=== PATIENT | male | born 1985 | race Caucasian/White ===

== ENCOUNTER 2016-12-25 21:35 | Inpatient (IN) | payer MEDICAID, OTHER ==
[~2016-12-25 21:35] MED LIST: Sodium Chloride 0.9% 1000 ML 1,000 ML IV STA
[2016-12-25 21:47] LABS: VBG BASE EXCESS -4.9 (-2.0-2.0); VBG CARBOXYHEMOGLOBIN 4.3 % T HGB (0.0-6.9); VBG HCO3- 21.1 meq/L (22-28); VBG O2 SATURATION 50.8 (95-100); VBG POTASSIUM 3.1 (3.5-5.1); VBG pH 7.31 (7.32-7.42)
[2016-12-25 21:49] LABS: Mean Cell Volume 67.8 fl (78-100); Platelet Count 189 K/mm3 (150-450); Red Blood Count 5.87 M/mm3 (4.1-5.6); Red Cell Distribution Width 22.3 % (11.5-14.0); White Blood Count 3.6 K/mm3 (4.0-10.5)
--- NOTE | 2016-12-25 21:50 | ERPHSYRPT ---
- History of Present Illness Time Seen by Provider: 12/25/16 21:38 Source: patient, EMS Exam Limitations: no limitations Physician History: This is a 31-year-old white male with history of substance abuse in the past he is brought by paramedics with complaint that the patient had a possible overdose. According to patient and the medics patient apparently took bilateral crusted up and injected around 5:00 he states he took 2 30 milligrams tablets. Patient was apparently complaining of anterior chest pain at the time he has been having vomiting he is noted to have incontinence of his urine and his stool on arrival patient did vomit in the emergency room he was apparently covered with feces and urine on arrival for the medics. Patient currently is alert oriented 3 and cooperative to examination. Past medical history includes substance abuse, patient has had anemia Patient has a history of colonoscopy Patient states he uses marijuana occasionally he denies other substance abuse other than today he states the last time he abuse medications was about 7 years ago. An old chart shows that the patient has been seen in the past for baths salt use. Patient denies suicidal or homicidal ideation Timing/Duration: today (5:00 this evening) Severity: moderate Modifying Factors: Improves With: other (patient states he crushed up Adderal and injected it) Associated Symptoms: vomiting, chest pain, other (incontinence of stool ), No shortness of breath, No heartburn, No diaphoresis, No cough, No chills, No fever , No headaches, No loss of appetite, No malaise, No rash, No syncope, No seizure , No weakness Allergies/Adverse Reactions: No Known Drug Allergies Allergy (Verified 07/18/16 20:58) Home Medications: Unobtainable [Unobtainable] 12/26/16 [History] Hx Tetanus, Diphtheria Vaccination/Date Given: Yes Hx Influenza Vaccination/Date Given: No Hx Pneumococcal Vaccination/Date Given: No - Review of Systems Constitutional: No Fever, No Chills Eyes: No Symptoms Ears, Nose, & Throat: No Symptoms Respiratory: No Cough, No Dyspnea Cardiac: Chest Pain Abdominal/Gastrointestinal: Nausea, Vomiting, Diarrhea, No Abdominal Pain Genitourinary Symptoms: No Dysuria Musculoskeletal: No Back Pain, No Neck Pain Skin: No Rash Neurological: No Dizziness, No Focal Weakness, No Sensory Changes Psychological: Drug Abuse (intensely injected crushed up adderal) Endocrine: No Symptoms All Other Systems: Reviewed and Negative - Past Medical History Pertinent Past Medical History: Yes Neurological History: No Pertinent History ENT History: No Pertinent History Cardiac History: No Pertinent History Respiratory History: No Pertinent History Endocrine Medical History: No Pertinent History Musculoskeletal History: No Pertinent History GI Medical History: Hemorrhoids History: No Pertinent History Psycho-Social History: No Pertinent History Male Reproductive Disorders: No Pertinent History Other Medical History: ANEMIA. - Past Surgical History Past Surgical History: Yes Neuro Surgical History: No Pertinent History Cardiac: No Pertinent History Respiratory: No Pertinent History Gastrointestinal: No Pertinent History Genitourinary: No Pertinent History Musculoskeletal: No Pertinent History Male Surgical History: No Pertinent History Other Surgical History: COLONOSCOPY-2013 - Social History Smoking Status: Current every day smoker How long have you smoked: unknown Exposure to second hand smoke: Yes Drug Use: none Patient Lives Alone: No - Nursing Vital Signs Nursing Vital Signs: Initial Vital Signs Temperature 100.8 F Temperature Source Oral Pulse Rate 112 Respiratory Rate 17 Blood Pressure [Right Arm] 114/60 - Physical Exam General Appearance: moderate distress, other (well-developed white male alert oriele, alert, oriented x 3, vomiting discussed) Eye Exam: PERRL/EOMI, eyes nml inspection Ears, Nose, Throat Exam: normal ENT inspection, TMs normal, pharynx normal, moist mucous membranes Neck Exam: normal inspection, non-tender, supple, full range of motion Respiratory Exam: normal breath sounds, lungs clear, No respiratory distress Cardiovascular Exam: regular rate/rhythm, normal heart sounds, normal peripheral pulses, tachycardia Gastrointestinal/Abdomen Exam: soft, normal bowel sounds, No tenderness, No mass Back Exam: normal inspection, normal range of motion, No CVA tenderness, No vertebral tenderness Extremity Exam: normal inspection, normal range of motion, pelvis stable Neurologic Exam: alert ( this is too complex. He), oriented x 3, cooperative, normal mood/affect, nml cerebellar function, nml station & gait, sensation nml, No motor deficits Skin Exam: normal color, warm, dry, No rash Lymphatic Exam: No adenopathy SpO2 Interpretation: normal - Course Nursing assessment & vital signs reviewed: Yes EKG Interpreted by Me: RATE (125 bpm), Sinus Tach, NORMAL AXIS, Other (EKG: Sinus tachycardia, 125 bpm, no acute ST or T wave changes, normal axis) - Radiology Exams Chest X-ray Interpretation: Interpreted by me, Negative, No Pneumonia, No Pneumothorax Ordered Tests: Active Orders 24 hr Category Date Time Status Bedrest ROUTINE Activity 12/26/16 00:43 Active Accucheck STAT Care 12/25/16 21:35 Completed Admission/Status Order ROUTINE Care 12/26/16 00:43 Active Call Admit Doctor for Orders ON ADMISSION Care 12/26/16 00:43 Completed Code Status Order ROUTINE Care 12/26/16 00:43 Active EKG-ER Only STAT Care 12/25/16 21:35 Completed IV Care Q6H Care 12/26/16 00:43 Active IV Insertion STAT Care 12/25/16 21:35 Completed IV Insertion STAT Care 12/25/16 21:54 Completed Oxygen-ED Only NASAL CANNULA 2 lpm Care 12/25/16 22:14 Completed Telemetry ROUTINE Care 12/26/16 00:43 Active Weight,Daily 0600 Care 12/26/16 00:43 Active cath [Cath for Specimen-Straight] STAT Care 12/25/16 23:02 Completed Clear Liquid Diet 12/26/16 Breakfast Active CHEST 1 VIEW (PORTABLE) Stat Exams 12/25/16 21:37 Taken ACETAMINOPHEN Stat Lab 12/25/16 21:35 Completed ACETAMINOPHEN Urgent Lab 12/26/16 02:00 Ordered AMYLASE Stat Lab 12/25/16 21:35 Completed CBC W DIFF AM.LAB Lab 12/26/16 04:00 Ordered CBC W DIFF Stat Lab 12/25/16 21:35 Completed CK-Creatinine Phosphokinase AM.LAB Lab 12/26/16 04:00 Ordered CK-Creatinine Phosphokinase Stat Lab 12/25/16 21:35 Completed CMP AM.LAB Lab 12/26/16 04:00 Ordered CMP Stat Lab 12/25/16 21:35 Completed Ethyl Alcohol,Urine Stat Lab 12/25/16 23:09 Completed LIPASE Stat Lab 12/25/16 21:35 Completed Manual Differential NC Stat Lab 12/25/16 21:35 Completed SALICYLATE Stat Lab 12/25/16 21:35 Completed TROPONIN Q3H Lab 12/25/16 21:35 Completed TROPONIN Q3H Lab 12/26/16 00:45 Ordered TROPONIN Q3H Lab 12/26/16 03:45 Ordered TROPONIN Q3H Lab 12/26/16 06:45 Ordered TROPONIN Q3H Lab 12/26/16 09:45 Ordered UA W/ MICROSCOPIC Stat Lab 12/25/16 23:09 Completed Urine Triage Profile Stat Lab 12/25/16 23:09 Completed VENOUS BLOOD GAS Urgent Lab 12/25/16 21:35 Completed Oxygen NASAL CANNULA 2 lpm RT 12/26/16 00:43 Active Transfer Order Routine Transfer 12/26/16 00:05 Completed Medication Summary Generic Name Dose Route Start Last Admin Trade Name Halima PRN Reason Stop Dose Admin Potassium Chloride/Sodium Chloride 1,000 mls @ 125 mls/hr 12/26/16 00:43 Sodium Chloride 0.9% W/ 20 Meq Kcl/Liter IV 01/25/17 00:42 .Q8H SASHA Lorazepam 1 mg 12/26/16 00:43 Ativan 2 Mg/1 Ml Vial IV 01/25/17 00:42 PRN PRN CIWA SCORE Ondansetron HCl 4 mg 12/26/16 00:43 Zofran 4 Mg/2 Ml Vial IV 01/25/17 00:42 Q6H PRN PRN NAUSEA/VOMITING Discontinued Medications Generic Name Dose Route Start Last Admin Trade Name Halima PRN Reason Stop Dose Admin Aspirin 324 mg 12/26/16 00:02 12/26/16 00:04 Baby Aspirin 81 Mg Chew PO 12/26/16 00:03 324 mg STAT ONE Administration Sodium Chloride 1,000 mls @ 999 mls/hr 12/25/16 21:35 12/25/16 22:08 Sodium Chloride 0.9% 1000 Ml IV 12/25/16 22:35 999 mls/hr .Q1H1M STA Administration Sodium Chloride 1,000 mls @ 999 mls/hr 12/25/16 21:53 12/25/16 22:08 Sodium Chloride 0.9% 1000 Ml IV 12/25/16 22:53 999 mls/hr .Q1H1M STA Administration Sodium Chloride Confirm 12/25/16 22:05 Sodium Chloride 0.9% 1000 Ml Administered 12/25/16 22:06 Dose 2,000 mls @ ud .ROUTE .STK-MED ONE Sodium Chloride 1,000 mls @ 150 mls/hr 12/25/16 22:45 12/25/16 22:41 Sodium Chloride 0.9% 1000 Ml IV 01/24/17 22:44 150 mls/hr .Q6H40M SASHA Administration Sodium Chloride Confirm 12/25/16 22:36 Sodium Chloride 0.9% 1000 Ml Administered 12/25/16 22:37 Dose 1,000 mls @ ud .ROUTE .STK-MED ONE Ondansetron HCl 4 mg 12/25/16 22:38 12/25/16 22:40 Zofran 4 Mg/2 Ml Vial IV 12/25/16 22:39 4 mg STAT ONE Administration Ondansetron HCl Confirm 12/25/16 22:36 Zofran 4 Mg/2 Ml Vial Administered 12/25/16 22:37 Dose 4 mg .ROUTE .STK-MED ONE Thiamine HCl 100 mg 12/25/16 21:51 12/25/16 22:08 Thiamine 200 Mg/2 Ml IV 12/25/16 21:52 100 mg STAT ONE Administration Thiamine HCl Confirm 12/25/16 22:05 Thiamine 200 Mg/2 Ml Administered 12/25/16 22:06 Dose 200 mg .ROUTE .[facility] ONE Lab/Rad Data: Laboratory Result Diagrams 12/25/16 21:35 12/25/16 21:35 Laboratory Results 12/25/16 12/25/16 12/25/16 Range/Units 23:09 23:09 23:09 WBC (4.0-10.5) K/mm3 RBC (4.1-5.6) M/mm3 Hgb (12.5-18.0) gm/dl Hct (42-50) % MCV (78-100) fl MCH (26-32) pg MCHC (32-36) g/dl RDW (11.5-14.0) % Plt Count (150-450) K/mm3 Segmented Neutrophils (36.-66.) % Band Neutrophils (0.0-2.0) % Lymphocytes (Manual) (24-44) % Differential Comment Dohle Bodies Platelet Estimate (NORMAL) Polychromasia Hypochromasia Poikilocytosis Anisocytosis Microcytosis Ovalocytes VBG pH (7.32-7.42) VBG pCO2 at Pat Temp (42-55) mm/Hg VBG pO2 at Pat Temp (25-40) mm/Hg VBG HCO3 (22-28) meq/L VBG O2 Sat (Rip) (95-100) VBG Base Excess (-2.0-2.0) VBG Hemoglobin VBG Carboxyhemoglobin (0.0-6.9) % T HGB POC Potassium (3.5-5.1) Sodium (136-145) mEq/L Potassium (3.5-5.1) mEq/L Chloride (98-107) mEq/L Carbon Dioxide (21-32) mEq/L Anion Gap (5-15) MEQ/L BUN (9-20) mg/dL Creatinine (0.55-1.30) mg/dl Estimated GFR ML/MIN Glucose (70-110) MG/DL Calcium (8.5-10.1) mg/dL Total Bilirubin (0.2-1.0) mg/dL AST (15-37) U/L ALT (12-78) U/L Alkaline Phosphatase (46-116) U/L Creatine Kinase (39-308) U/L Troponin I (0.000-0.056) ng/ml Serum Total Protein (6.4-8.2) gm/dL Albumin (3.4-5.0) g/dL Amylase (25-115) U/L Lipase (73-393) U/L Ur Collection Type CATH Urine Color YELLOW (YELLOW) Urine Appearance SLIGHTLY CLOUDY (CLEAR) Urine pH 5.5 5.5 (5-6) Ur Specific [place] 1.010 (1.005-1.025) Urine Protein 30 (Negative) Urine Glucose (UA) NEGATIVE (NEGATIVE) mg/dL Urine Ketones NEGATIVE (NEGATIVE) Urine Nitrite NEGATIVE (NEGATIVE) Urine Bilirubin NEGATIVE (NEGATIVE) Urine Urobilinogen 0.2 (0-1) mg/dL Urine WBC (Auto) NEGATIVE (NEGATIVE) Urine RBC (Auto) MODERATE (0-5) Paresh/ul Urine Microscopic RBC 15-25 (0-2) /HPF Urine Microscopic WBC 2-5 (0-5) /HPF Ur Epithelial Cells MODERATE (FEW) /HPF Urine Bacteria MODERATE (NEGATIVE) /HPF Hyaline Casts 0-2 (0-2) /LPF Urine Mucus SLIGHT (NEGATIVE) /HPF Salicylates (2.8-20.0) mg/dl Urine Opiates Level NEG. (NEGATIVE) Ur Methadone NEG. (NEGATIVE) Acetaminophen (10-30) ug/ml Urine Barbiturates NEG. (NEGATIVE) Ur Phencyclidine (PCP) NEG. (NEGATIVE) Urine Amphetamine POS. (NEGATIVE) U Benzodiazepine Level NEG. (NEGATIVE) Urine Cocaine NEG. (NEGATIVE) Urine Marijuana (THC) POS. (NEGATIVE) Urine Ethyl Alcohol < 3 (0.00-20) mg/dl Specimen Received 12/25/16 5161 12/25/16 12/25/16 12/25/16 Range/Units 21:35 21:35 21:35 WBC (4.0-10.5) K/mm3 RBC (4.1-5.6) M/mm3 Hgb (12.5-18.0) gm/dl Hct (42-50) % MCV (78-100) fl MCH (26-32) pg MCHC (32-36) g/dl RDW (11.5-14.0) % Plt Count (150-450) K/mm3 Segmented Neutrophils (36.-66.) % Band Neutrophils (0.0-2.0) % Lymphocytes (Manual) (24-44) % Differential Comment Dohle Bodies Platelet Estimate (NORMAL) Polychromasia Hypochromasia Poikilocytosis Anisocytosis Microcytosis Ovalocytes VBG pH (7.32-7.42) VBG pCO2 at Pat Temp (42-55) mm/Hg VBG pO2 at Pat Temp (25-40) mm/Hg VBG HCO3 (22-28) meq/L VBG O2 Sat (Rip) (95-100) VBG Base Excess (-2.0-2.0) VBG Hemoglobin VBG Carboxyhemoglobin (0.0-6.9) % T HGB POC Potassium (3.5-5.1) Sodium (136-145) mEq/L Potassium (3.5-5.1) mEq/L Chloride (98-107) mEq/L Carbon Dioxide (21-32) mEq/L Anion Gap (5-15) MEQ/L BUN (9-20) mg/dL Creatinine (0.55-1.30) mg/dl Estimated GFR ML/MIN Glucose (70-110) MG/DL Calcium (8.5-10.1) mg/dL Total Bilirubin (0.2-1.0) mg/dL AST (15-37) U/L ALT (12-78) U/L Alkaline Phosphatase (46-116) U/L Creatine Kinase 296 (39-308) U/L Troponin I < 0.017 (0.000-0.056) ng/ml Serum Total Protein (6.4-8.2) gm/dL Albumin (3.4-5.0) g/dL Amylase 32 (25-115) U/L Lipase 109 (73-393) U/L Ur Collection Type Urine Color (YELLOW) Urine Appearance (CLEAR) Urine pH (5-6) Ur Specific [place] (1.005-1.025) Urine Protein (Negative) Urine Glucose (UA) (NEGATIVE) mg/dL Urine Ketones (NEGATIVE) Urine Nitrite (NEGATIVE) Urine Bilirubin (NEGATIVE) Urine Urobilinogen (0-1) mg/dL Urine WBC (Auto) (NEGATIVE) Urine RBC (Auto) (0-5) Paresh/ul Urine Microscopic RBC (0-2) /HPF Urine Microscopic WBC (0-5) /HPF Ur Epithelial Cells (FEW) /HPF Urine Bacteria (NEGATIVE) /HPF Hyaline Casts (0-2) /LPF Urine Mucus (NEGATIVE) /HPF Salicylates (2.8-20.0) mg/dl Urine Opiates Level (NEGATIVE) Ur Methadone (NEGATIVE) Acetaminophen (10-30) ug/ml Urine Barbiturates (NEGATIVE) Ur Phencyclidine (PCP) (NEGATIVE) Urine Amphetamine (NEGATIVE) U Benzodiazepine Level (NEGATIVE) Urine Cocaine (NEGATIVE) Urine Marijuana (THC) (NEGATIVE) Urine Ethyl Alcohol (0.00-20) mg/dl Specimen Received 12/25/16 12/25/16 12/25/16 Range/Units 21:35 21:35 21:35 WBC 3.6 L (4.0-10.5) K/mm3 RBC 5.87 H (4.1-5.6) M/mm3 Hgb 11.6 L (12.5-18.0) gm/dl Hct 39.8 L (42-50) % MCV 67.8 L (78-100) fl MCH 19.7 L (26-32) pg MCHC 29.1 L (32-36) g/dl RDW 22.3 H (11.5-14.0) % Plt Count 189 (150-450) K/mm3 Segmented Neutrophils 80 H (36.-66.) % Band Neutrophils 11 H (0.0-2.0) % Lymphocytes (Manual) 9 L (24-44) % Differential Comment ABNORMAL Dohle Bodies 1+ Platelet Estimate NORMAL (NORMAL) Polychromasia 1+ Hypochromasia 2+ Poikilocytosis 1+ Anisocytosis 1+ Microcytosis 2+ Ovalocytes 1+ VBG pH 7.31 L (7.32-7.42) VBG pCO2 at Pat Temp 42 (42-55) mm/Hg VBG pO2 at Pat Temp 27 (25-40) mm/Hg VBG HCO3 21.1 L (22-28) meq/L VBG O2 Sat (Rip) 50.8 L (95-100) VBG Base Excess -4.9 L (-2.0-2.0) VBG Hemoglobin 12.0 VBG Carboxyhemoglobin 4.3 (0.0-6.9) % T HGB POC Potassium 3.1 L (3.5-5.1) Sodium 141 (136-145) mEq/L Potassium 3.1 L (3.5-5.1) mEq/L Chloride 103 (98-107) mEq/L Carbon Dioxide 20.3 L (21-32) mEq/L Anion Gap 20.3 H (5-15) MEQ/L BUN 21 H (9-20) mg/dL Creatinine 2.05 H (0.55-1.30) mg/dl Estimated GFR 41 ML/MIN Glucose 124 H (70-110) MG/DL Calcium 9.4 (8.5-10.1) mg/dL Total Bilirubin 0.7 (0.2-1.0) mg/dL AST 99 H (15-37) U/L ALT 53 (12-78) U/L Alkaline Phosphatase 102 (46-116) U/L Creatine Kinase (39-308) U/L Troponin I (0.000-0.056) ng/ml Serum Total Protein 7.6 (6.4-8.2) gm/dL Albumin 4.2 (3.4-5.0) g/dL Amylase (25-115) U/L Lipase (73-393) U/L Ur Collection Type Urine Color (YELLOW) Urine Appearance (CLEAR) Urine pH (5-6) Ur Specific [place] (1.005-1.025) Urine Protein (Negative) Urine Glucose (UA) (NEGATIVE) mg/dL Urine Ketones (NEGATIVE) Urine Nitrite (NEGATIVE) Urine Bilirubin (NEGATIVE) Urine Urobilinogen (0-1) mg/dL Urine WBC (Auto) (NEGATIVE) Urine RBC (Auto) (0-5) Paresh/ul Urine Microscopic RBC (0-2) /HPF Urine Microscopic WBC (0-5) /HPF Ur Epithelial Cells (FEW) /HPF Urine Bacteria (NEGATIVE) /HPF Hyaline Casts (0-2) /LPF Urine Mucus (NEGATIVE) /HPF Salicylates < 2.8 L (2.8-20.0) mg/dl Urine Opiates Level (NEGATIVE) Ur Methadone (NEGATIVE) Acetaminophen < 2.0 L (10-30) ug/ml Urine Barbiturates (NEGATIVE) Ur Phencyclidine (PCP) (NEGATIVE) Urine Amphetamine (NEGATIVE) U Benzodiazepine Level (NEGATIVE) Urine Cocaine (NEGATIVE) Urine Marijuana (THC) (NEGATIVE) Urine Ethyl Alcohol (0.00-20) mg/dl Specimen Received - Progress Progress: improved Progress Note: 12/25/16 21:49 This is a 31-year-old white male who is brought by medics with complaint that he crushed up lateral tablets and injecting them at about 5:00. Patient was noted to have vomiting, 4 episodes of diarrhea incontinence of stool. On arrival he is vomiting he is alert however oriented 3. Patient is noted to be tachycardic on the monitor with heart rate at this time at approximately 126. Orders have been placed I've asked the nurses to obtain an EKG and contact poison control patient is being given IV fluids , 12/25/16 23:47 Patient feeling much better after IV fluids and Zofran. Patient's heart rate currently 111 beats per minute patient does not appear to be in acute distress blood pressure has improved. Patient's chemistry is remarkable for a of potassium of 3.1 sodium 141 chloride 103 bicarbonate 20.3 BUN 21 creatinine 2.05 glucose 124. Troponin is within normal limits amylase normal lipase normal salicylate less than 2.8 acetaminophen less than 2. Urine drug screen is a positive for amphetamines and the blood alcohol is less than 3. I initially discussed the case with Dr. Aguila apparently Dr. Aguila is no longer this patient's family physician Will discuss case with Dr. hodgson who is news production assistant for service call. 12/26/16 00:02 Case is discussed with Dr. hodgson who is on service call. Patient is feeling much better. Will go ahead and give patient aspirin 324 mg orally. Will go ahead and place patient on ICU obtain serial troponins obtain acetaminophen level IV hours after last draw. Will start normal saline with 20 mEq of potassium chloride per liter to run at 1 25 mL per hour. Will write for Ativan as needed for agitation. CBC CMP in the morning - Departure Time of Disposition: 00:00 Departure Disposition: Observation Clinical Impression: Intentional overdose of drug by injectable substance, Substance abuse Vomiting Qualifiers: Vomiting type: unspecified Vomiting Intractability: non-intractable Nausea presence: without nausea Qualified Code(s): R11.11 - Vomiting without nausea Diarrhea Qualifiers: Diarrhea type: unspecified type Qualified Code(s): R19.7 - Diarrhea, unspecified Condition: Fair Critical Care Time: No
[2016-12-25] MEDS ORDERED: THIAMINE 200 MG/2 ML IV ONE (21:51)
[2016-12-25] MEDS ORDERED: Sodium Chloride 0.9% 1000 ML 1,000 ML IV STA (21:53)
[2016-12-25 21:57] LABS: Mean Corpuscular Hemoglobin 19.7 pg (26-32)
[2016-12-25] MEDS ORDERED: THIAMINE 200 MG/2 ML ONE (22:05)
[2016-12-25] MEDS ORDERED: Sodium Chloride 0.9% 1000 ML 2,000 ML ONE (22:05)
[2016-12-25 22:15] LABS: ALBUMIN 4.2 g/dL (3.4-5.0); ALKALINE PHOSPHATASE 102 U/L (46-116); ANION GAP 20.3 MEQ/L (5-15); BILIRUBIN,TOTAL 0.7 mg/dL (0.2-1.0); BLOOD UREA NITROGEN 21 mg/dL (9-20); CHLORIDE 103 mEq/L (98-107); Carbon Dioxide 20.3 mEq/L (21-32); Glucose 124 MG/DL (70-110); Potassium 3.1 mEq/L (3.5-5.1); SGOT/AST 99 U/L (15-37); SGPT/ALT 53 U/L (12-78); SODIUM 141 mEq/L (136-145); Total Protein 7.6 gm/dL (6.4-8.2)
[2016-12-25 22:16] LABS: ACETAMINOPHEN < 2.0 ug/ml (10-30)
[2016-12-25 22:24] LABS: LIPASE 109 U/L (73-393)
[2016-12-25 22:25] LABS: BAND 11 % (0.0-2.0); Platelet Estimate NORMAL (NORMAL); Total Cells Counted 100
[2016-12-25 22:26] LABS: Hypochromia 2+; Microcytosis 2+
[2016-12-25 22:28] LABS: ANISOCYTOSIS 1+; Ovalocytes 1+; Poikilocytosis 1+; Polychromasia 1+
[2016-12-25 22:29] LABS: Dohle Bodies 1+
[2016-12-25] MEDS ORDERED: Sodium Chloride 0.9% 1000 ML 1,000 ML ONE (22:36)
[2016-12-25] MEDS ORDERED: Zofran 4 MG/2 ML VIAL ONE (22:36)
[2016-12-25] MEDS ORDERED: Zofran 4 MG/2 ML VIAL IV ONE (22:38)
[2016-12-25] MEDS ORDERED: Sodium Chloride 0.9% 1000 ML 1,000 ML IV SCH (22:45)
[2016-12-26] MEDS ORDERED: BABY ASPIRIN 81 MG CHEW PO ONE (00:02)
[2016-12-26 00:08] LABS: Bacteria MODERATE /HPF (NEGATIVE); COMPLETE URINE MICROSCOPIC? YES; Collection Type CATH; Epithelial Cells MODERATE /HPF (FEW); Hyaline Casts 0-2 /LPF (0-2); Mucus SLIGHT /HPF (NEGATIVE); Ph 5.5 (5-6)
[2016-12-26] MEDS ORDERED: Sodium Chloride 0.9% W/ 20 mEq KCl/LITER 1,000 ML IV SCH (00:43)
[2016-12-26] MEDS ORDERED: Zofran 4 MG/2 ML VIAL IV PRN (00:43)
[2016-12-26] MEDS ORDERED: Ativan 2 MG/1 ML VIAL IV PRN (00:43)
[2016-12-26 04:39] LABS: Mean Cell Volume 67.8 fl (78-100); Platelet Count 117 K/mm3 (150-450); Red Blood Count 4.79 M/mm3 (4.1-5.6); Red Cell Distribution Width 21.4 % (11.5-14.0); White Blood Count 15.9 K/mm3 (4.0-10.5)
[2016-12-26 04:48] LABS: Mean Corpuscular Hemoglobin 20.2 pg (26-32)
[2016-12-26] MEDS ORDERED: Sodium Chloride 0.9% 1000 ML 1,000 ML ONE ×2 (05:22→12:36)
[2016-12-26 05:31] LABS: ALBUMIN 3.1 g/dL (3.4-5.0); ANION GAP 16.4 MEQ/L (5-15); BILIRUBIN,TOTAL 0.9 mg/dL (0.2-1.0); Carbon Dioxide 20.8 mEq/L (21-32); Potassium 3.7 mEq/L (3.5-5.1); Total Protein 5.8 gm/dL (6.4-8.2)
--- NOTE | 2016-12-26 08:55 | HP ---
HISTORY OF PRESENT ILLNESS: This is a 31 y/o man who reports that he was trying to get high off of Adderall yesterday and he crushed some and injected it. The Emergency Room doctor reported that EMS was called. The patient reports that after he did this he felt poorly and so he called his family. The patient does report that he was home with his 2 y/o son, but then called his family to come watch him. The EMS found him, according to the Emergency Room doctor, in the bathtub covered in poop. The patient reports all he then remembers is waking up in the bathroom covered in poop and he was brought her for further evaluation and treatment. The patient reports that he has had trouble with drug abuse in the past and reports that he had trouble 7 or 8 years ago and quit using and moved away. He does have a recent hospitalization here at our hospital July 2016 with an overdose. The patient reports that he recently got from his and they are in a custody bee. He reports he has had counseling at [facility] before and desires help with his addiction. REVIEW OF SYSTEMS: He has had vomiting and diarrhea before admission, but not overnight. He denies pain anywhere. He had chest pain when he came in. he states he feels like he needs to urinate, but is having trouble doing so and was not having trouble urinating before coming in to the Emergency Department. He reports that he used a catheter and he thinks this has caused the problem. Otherwise, Review of Systems is negative. PAST MEDICAL HISTORY: Illicit drug use. PAST SURGICAL HISTORY: Hemorrhoidectomy. SOCIAL HISTORY: He reports he smokes 1/2 pack per day of cigarettes. He uses marijuana and he uses prescription drugs that are not his. He denies methamphetamine use, denies heroin use, and denies cocaine use. FAMILY HISTORY: His mother is living and doesn't have any health problems. His father is living and thinks he has diabetes. The patient doesn't have a local primary care doctor. CURRENT MEDICATIONS: No prescribed medications. ALLERGIES: NKDA. PHYSICAL EXAMINATION: VITAL SIGNS: Temperature current 98.4; temperature maximum 100.8; heart rate 93-131, currently 100; respiratory rate 16-24, currently 16; O2 saturation 94-98% on 2 liters nasal cannula; BP 84-123/45-60, currently 96/45. Weight is 78 Kg. GENERAL: The patient is lying in bed in no acute distress. He arouses easily. He is A&O X 3 and knows who The client advocate is. CVS: He has a regular rate and rhythm. No murmurs, gallops, or rubs are appreciated. CHEST: He has a few wheezes at the bases bilaterally. No crackles. Equal breath sounds. No retractions. ABDOMEN: Soft, nontender, nondistended with normal bowel sounds. EXTREMITIES: No clubbing, cyanosis, or edema. SKIN: He has tattoos. No rash and the skin is warm, dry, and intact. LABORATORY DATA: His WBC on admission was 3.6, now 15.9. On admission, he had 80% neutrophils, 11% bands, 9% lymphocytes. Potassium on admission was 3.1, repeat was 3.7. AST this morning 120, ALT 80, albumin 3.1. Creatinine was 2.05 on admission, now 1.71. Urine tox was positive for amphetamines and THC. Acetaminophen level was less than 2 and repeat 4 hours later was less than 2. Salicylates less than 2.8. Ethyl alcohol less than 3. He had a chest x-ray, but there is no formal report from the radiologist. His EKG from the Emergency Room revealed sinus tachycardia with no ST or T wave changes. ASSESSMENT AND PLAN: 1. PRESCRIPTION DRUG OVERDOSE: The patient has been given a large amount of IV fluids. His heart rate has come down. He is alert and talkative now. The patient reports he does want help with his addiction. Will ask for [facility] to consult with him. 2. ILLICIT DRUG USE: The patient will be counseled that he shouldn't be using illicit drugs and that he shouldn't be using prescription medicines that aren't his. 3. ACUTE RENAL FAILURE: Will continue with the fluids and recheck his creatinine again in the morning. 4. LEUKOCYTOSIS: Will check a lactic acid level this AM and recheck a PA and lateral chest x-ray.
--- NOTE | 2016-12-26 09:01 | XRAY ---
Indication: Overdose. Comparison: July 19, 2016. Portable chest again demonstrates normal heart, lungs, and bony thorax with incidental calcified granulomas.
--- NOTE | 2016-12-26 09:03 | XRAY ---
Indication: Leukocytosis. Comparison: One day earlier. PA/lateral chest again demonstrates normal heart, lungs, and bony thorax with incidental calcified granulomas.
[2016-12-26 09:19] LABS: Lactic Acid 3.4 (0.4-2.0)
[2016-12-26] MEDS ORDERED: PHARMACY DOSING REQUEST MC ONE ×2 (09:56→09:57)
[2016-12-26] MEDS: Dextrose 5% -0.45 NaCl 1000 ML 1,000 ML IV SCH ×2 (10:01→20:39)
[2016-12-26] MEDS: TYLENOL 325 MG PO PRN ×2 (10:02→18:03)
[2016-12-26] MEDS: Merrem 1 GM 1 G in Sodium Chloride 100ML MINI-BAG PLUS 100 ML IV SCH ×3 (10:29→20:01)
[2016-12-26] MEDS: VANCOCIN 1 GM VIAL*** 0.75 GM in Sodium Chloride 0.9% 250 ML 250 ML IV SCH ×2 (11:19→22:09)
[2016-12-26] MEDS ORDERED: Sodium Chloride 0.9% 1000 ML 1,000 ML IV STA (12:38)
[2016-12-26 13:06] LABS: BAND 14 % (0.0-2.0); Total Cells Counted 100
[2016-12-26 13:07] LABS: ANISOCYTOSIS 1+; Platelet Estimate NORMAL (NORMAL); Poikilocytosis 1+
--- NOTE | 2016-12-26 14:31 | CONS ---
CONSULT DATE: 12/26/16 REASON FOR CONSULTATION: Critical care evaluation. HISTORY OF PRESENT ILLNESS: Mr. Black is a 31 y/o male with history of substance abuse who apparently used [address] Adderall IV with contaminated needle. The patient presented with altered mental status with headache, dizziness, and diarrhea to the Emergency Room at [facility]. He had subsequently been admitted to Intensive Care Unit. He was noted to be hypotensive with improving BP with IV hydration. He was started with broad spectrum IV antibiotics. I received a call earlier from Dr. Hu requesting critical care consultation. At the time of my evaluation, patient is awake. He is able to give history. He appears comfortable. He reports headache, but no other complaints. His BP currently is 94/50 after receiving fluid bolus. He reports that he has been doing drugs for a long time. PAST MEDICAL HISTORY: Patient denies any common medical problems other than illicit drug use. PAST SURGICAL HISTORY: Hemorrhoid surgery. PERSONAL AND SOCIAL HISTORY: He smokes 1/2 pack. Uses marijuana occasionally. He is not on any prescription medications. 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 ALLERGIES: NOTED. CURRENT MEDICATIONS: Reviewed. PHYSICAL EXAMINATION: This is a middle aged male who appears comfortable still with a little bit of a dazed look, but not in any discomfort. Vital signs are noted. HEENT: Normocephalic. Oral exam is unremarkable. NECK: Supple. CVS: 1st and 2nd heart sounds normal, regular rhythm. RESPIRATORY: Shows diminished breath sounds. ABDOMEN: Soft. No edema is noted. Lactic acid is 2.3. WBC 15.9, Hgb 9.7, Hct 32, platelets 117. Troponin is negative. Sodium 141, potassium 3.7, chloride 107, bicarb 20, glucose 112, BUN 20, creatinine 1.7. The UA was noted. Chest x-ray was unremarkable. ASSESSMENT: 1. THIS IS A 31 YEAR OLD MALE ADMITTED WITH ILLICIT SUBSTANCE ABUSE VIA IV ROUTE WITH POSSIBLY CONTAMINATED NEEDLE. IS NOTED TO HAVE HYPOTENSION POSSIBLY FROM EARLY SEPSIS. 2. RENAL INSUFFICIENCY. ELEVATED CREATININE. POSSIBLY FROM DRUG USE. 3. SUBSTANCE ABUSE. RECOMMENDATIONS: 1. Agree with current broad spectrum IV antibiotics. 2. Continue aggressive hydration monitoring urinary output. 3. Repeat labs in AM. 4. Continue Tylenol PRN. 5. Advised patient regarding hazards of substance abuse, in particularly via IV route. 6. Patient has been advised to get human immunodeficiency virus and hepatitis testing now, at 6 weeks, and at 3 months. 7. Deep vein thrombosis and gastrointestinal prophylaxis. Will continue to follow. Thank you for allowing me to participate in the care of this patient.
[2016-12-26] MEDS: Sodium Chloride 0.9% 1000 ML 1,000 ML IV PRN ×3 (14:52→23:05)
[2016-12-27] MEDS: Merrem 1 GM 1 G in Sodium Chloride 100ML MINI-BAG PLUS 100 ML IV SCH ×3 (03:20→18:44)
[2016-12-27] MEDS: Sodium Chloride 0.9% 1000 ML 1,000 ML IV PRN ×2 (04:41→06:19)
[2016-12-27] MEDS: Dextrose 5% -0.45 NaCl 1000 ML 1,000 ML IV SCH ×2 (05:34→08:00)
[2016-12-27 05:38] LABS: Mean Cell Volume 69.3 fl (78-100); Mean Corpuscular Hemoglobin 19.8 pg (26-32); Platelet Count 90 K/mm3 (150-450); Red Blood Count 4.14 M/mm3 (4.1-5.6); Red Cell Distribution Width 21.8 % (11.5-14.0); White Blood Count 23.4 K/mm3 (4.0-10.5)
[2016-12-27 06:00] LABS: ALBUMIN 2.5 g/dL (3.4-5.0); ALKALINE PHOSPHATASE 71 U/L (46-116); ANION GAP 13.8 MEQ/L (5-15); BILIRUBIN,TOTAL 0.3 mg/dL (0.2-1.0); BLOOD UREA NITROGEN 12 mg/dL (9-20); CHLORIDE 113 mEq/L (98-107); Carbon Dioxide 21.1 mEq/L (21-32); Glucose 88 MG/DL (70-110); Potassium 3.3 mEq/L (3.5-5.1); SGOT/AST 45 U/L (15-37); SGPT/ALT 50 U/L (12-78); SODIUM 145 mEq/L (136-145)
[2016-12-27 06:36] LABS: BAND 9 % (0.0-2.0); Total Cells Counted 100
[2016-12-27 06:37] LABS: ANISOCYTOSIS 1+; Poikilocytosis 1+
[2016-12-27 06:38] LABS: Platelet Estimate NORMAL (NORMAL)
--- NOTE | 2016-12-27 08:43 | PCM.NOTE ---
Date and Time: 12/27/16837 Subjective Assessment: He reports his fingers feel puffy. He has been eating well. He states it feels like there is a heaviness on his chest that hasn't gone away since he was in the ER. He reports his headache and muscle aches are better. He is urinating well and states he feels like he needs to use the bathroom. He has a cough. He denies any rashes. Nursing reports that the CPS worker came to the hospital yesterday and there is a note on the front of the chart that CPS is to be notified when he is discharged. - Review of Systems Constitutional: Fatigue Eyes: No Symptoms Ears, Nose, & Throat: No Symptoms Respiratory: No Symptoms Cardiac: Chest Pain Abdominal/Gastrointestinal: Abdominal Pain, No Nausea, No Vomiting, No Diarrhea , No Constipation Genitourinary Symptoms: No Symptoms Musculoskeletal: No Symptoms Skin: No Symptoms Objective Exam General Appearance: no apparent distress, alert, other (grandmother at bedside) Neurologic Exam: alert, cooperative, normal mood/affect Skin Exam: normal color, warm, dry, No rash Respiratory Exam: normal breath sounds, lungs clear, No crackles/rales, No rhonchi, No wheezing Cardiovascular Exam: regular rate/rhythm, normal heart sounds, No murmur, No friction rub, No gallop Gastrointestinal/Abdomen Exam: soft, normal bowel sounds, tenderness, other ( mild right upper quadrant tenderness), No distention, No mass, No guarding Extremity Exam: normal inspection, other (no c/c, + swelling in hands bilat, no edema of lower extremities.) OBJECTIVE DATA Vital Signs: Vital Signs - 24 hr Temp Pulse Resp BP Pulse Ox 12/27/16 07:47 98.6 F 82 16 118/66 98 12/27/16 07:00 62 16 107/66 98 12/27/16 06:39 65 16 98 12/27/16 06:00 69 15 94/54 98 12/27/16 05:00 97.4 F 69 15 96/60 12/27/16 04:00 97.4 F 79 15 90/54 12/27/16 03:00 97.7 F 71 15 86/56 91 L 12/27/16 02:00 97.7 F 72 15 85/58 98 12/27/16 01:00 97.6 F 77 15 93/54 98 12/27/16 00:01 81 12/27/16 00:00 91/46 12/26/16 23:00 97.7 F 78 19 73/39 97 12/26/16 22:00 98.2 F 75 15 95/52 97 12/26/16 21:00 98.1 F 87 20 79/44 98 12/26/16 20:00 98.7 F 91 H 20 89/44 99 12/26/16 18:57 98.8 F 97 H 20 106/59 98 12/26/16 18:55 98 12/26/16 18:00 100 H 22 106/59 100 12/26/16 17:07 99 H 21 106/57 100 12/26/16 16:00 98.9 F 107 H 26 H 94/59 98 12/26/16 15:00 99.1 F 92 H 18 102/59 99 12/26/16 12:49 95 H 16 92/45 98 12/26/16 11:56 93 H 12/26/16 11:51 100.5 F 93 H 27 H 88/47 98 12/26/16 09:48 99.6 F 12/26/16 09:01 97.5 F 85 18 97/51 98 12/26/16 08:52 85 Pain Assessment - Last Documented Pain Intensity 7 Pain Scale Used 0-10 Pain Scale Intake and Output: Intake & Output 12/25/16 12/26/16 12/27/16 12/28/16 06:59 06:59 06:59 06:59 Intake Total 905 9301 Output Total 3125 Balance 905 6144 Weight 78.608 kg 83.007 kg Lab Results: Lab Results-Last 24 Hours 12/26/16 12/26/16 12/26/16 Range/Units 09:15 09:53 11:45 WBC (4.0-10.5) K/mm3 RBC (4.1-5.6) M/mm3 Hgb (12.5-18.0) gm/dl Hct (42-50) % MCV (78-100) fl MCH (26-32) pg MCHC (32-36) g/dl RDW (11.5-14.0) % Plt Count (150-450) K/mm3 Segmented Neutrophils (36.-66.) % Band Neutrophils (0.0-2.0) % Lymphocytes (Manual) (24-44) % Monocytes (Manual) (0.0-12.0) % Differential Comment Platelet Estimate (NORMAL) Poikilocytosis Anisocytosis Sodium (136-145) mEq/L Potassium (3.5-5.1) mEq/L Chloride (98-107) mEq/L Carbon Dioxide (21-32) mEq/L Anion Gap (5-15) MEQ/L BUN (9-20) mg/dL Creatinine (0.55-1.30) mg/dl Estimated GFR ML/MIN Glucose (70-110) MG/DL Lactic Acid 3.4 H 2.3 H (0.4-2.0) Calcium (8.5-10.1) mg/dL Total Bilirubin (0.2-1.0) mg/dL AST (15-37) U/L ALT (12-78) U/L Alkaline Phosphatase (46-116) U/L Troponin I < 0.017 (0.000-0.056) ng/ml Serum Total Protein (6.4-8.2) gm/dL Albumin (3.4-5.0) g/dL 12/27/16 12/27/16 Range/Units 05:23 05:23 WBC 23.4 H (4.0-10.5) K/mm3 RBC 4.14 (4.1-5.6) M/mm3 Hgb 8.2 L (12.5-18.0) gm/dl Hct 28.7 L (42-50) % MCV 69.3 L (78-100) fl MCH 19.8 L (26-32) pg MCHC 28.6 L (32-36) g/dl RDW 21.8 H (11.5-14.0) % Plt Count 90 L (150-450) K/mm3 Segmented Neutrophils 68 H (36.-66.) % Band Neutrophils 9 H (0.0-2.0) % Lymphocytes (Manual) 19 L (24-44) % Monocytes (Manual) 4 (0.0-12.0) % Differential Comment ABNORMAL Platelet Estimate NORMAL (NORMAL) Poikilocytosis 1+ Anisocytosis 1+ Sodium 145 (136-145) mEq/L Potassium 3.3 L (3.5-5.1) mEq/L Chloride 113 H (98-107) mEq/L Carbon Dioxide 21.1 (21-32) mEq/L Anion Gap 13.8 (5-15) MEQ/L BUN 12 (9-20) mg/dL Creatinine 0.96 (0.55-1.30) mg/dl Estimated GFR > 60 ML/MIN Glucose 88 (70-110) MG/DL Lactic Acid (0.4-2.0) Calcium 7.2 L (8.5-10.1) mg/dL Total Bilirubin 0.3 (0.2-1.0) mg/dL AST 45 H (15-37) U/L ALT 50 (12-78) U/L Alkaline Phosphatase 71 (46-116) U/L Troponin I (0.000-0.056) ng/ml Serum Total Protein 5.0 L (6.4-8.2) gm/dL Albumin 2.5 L (3.4-5.0) g/dL Radiology Exams: Radiology Procedures Category Date Time Status CHEST 2 VIEWS (PA AND LAT) Routine Exams 12/26/16 08:31 Completed ECHO W/2D AND DOPPLER [US] Routine Exams 12/26/16 09:58 Taken GALLBLADDER [US] Urgent Exams 12/27/16 08:31 Ordered Multi-Disciplinary Progress Notes: Multi-Disciplinary Progress Notes 12/26/16 10:48 Pharmacy Note by SENIOR CONSUMER INSIGHTS CONSULTANT,PHARM Pharmacy to dose vancomycin and meropenem. The patient's Scr was 1.71 and his estimated CrCl was 60-70 ml/min on 12/26/16. Give patient vancomycin 750 mg Q12H and check vancomycin trough level on 12/27/16 at 21:30. Monitor patient's renal function and vancomycin levels and dose accordingly. -Luis Singleton, PharmD Candidate Initialized on 12/26/16 10:48 - END OF NOTE Assessment/Plan (1) Sepsis Current Visit: Yes Status: Acute Assessment & Plan: Blood cultures in lab, urine culture in lab, Will check gallbladder US today. Continue with fluid support. He received approximately 8 liters of fluid in and had approximately 3 liters of fluid out. I appreciate Dr. Clark consulting for critical care and he continues to follow as well. He has leukocytosis with a left shift. He is on meropenem Day 2 and vancomycin Day 2. He has an Echocardigram ordered. (2) Intentional overdose of drug by injectable substance Current Visit: Yes Status: Acute Assessment & Plan: Continue with supportive care. High risk profile ordered which includes testing for HIV and hepatitis B and C. He has been counseled on the risks of drug use especially IV drug use. Code(s): T50.902A - POISONING BY UNSP DRUG/MEDS/BIOL SUBST, SELF-HARM, INIT (3) Substance abuse Current Visit: Yes Status: Acute Code(s): F19.10 - OTHER PSYCHOACTIVE SUBSTANCE ABUSE, UNCOMPLICATED (4) Anemia Current Visit: Yes Status: Acute Assessment & Plan: Will check iron levels today. Code(s): D64.9 - ANEMIA, UNSPECIFIED (5) Thrombocytopenia Current Visit: Yes Status: Acute Assessment & Plan: Most likely secondary to sepsis. Will hold off on lovenox for DVT prophylaxis. He has not received any lovenox. (6) Chest pain Current Visit: Yes Status: Acute Assessment & Plan: He ruled out for acute OH yesterday. Will check another troponin today. Code(s): R07.9 - CHEST PAIN, UNSPECIFIED (7) Acute renal failure Current Visit: Yes Status: Acute Assessment & Plan: Improved with IV fluids. (8) Hypokalemia Current Visit: Yes Status: Acute Assessment & Plan: Will replace potassium today. Code(s): E87.6 - HYPOKALEMIA
[2016-12-27] MEDS ORDERED: Klor Con 10 MEQ PO ONE (08:56)
[2016-12-27] MEDS: VANCOCIN 1 GM VIAL*** 0.75 GM in Sodium Chloride 0.9% 250 ML 250 ML IV SCH ×2 (09:33→17:08)
[2016-12-27 14:10] LABS: CHLAMYDIA URINE NEGATIVE; GC URINE NEGATIVE
--- NOTE | 2016-12-27 15:09 | XRAY ---
Indication: Right upper quadrant pain. Sepsis. Two-dimensional right upper quadrant abdominal sonogram performed. Comparison: None Gallbladder normally distended with wall thickening measuring 3.3 mm and tiny pericholecystic fluid. No gallstone. Common bile duct measures 2.3 mm. No intrahepatic biliary distention. Remaining visualized portions of the liver, pancreas, and right kidney appear sonographically normal. Right kidney measures 11.7 cm in length. No ascites. Impression: Gallbladder wall thickening with pericholecystic fluid but no gallstones. Rule out acalculous cholecystitis.
[2016-12-27] MEDS ORDERED: TROUGH DRUG LEVELS IJ ONE (21:30)
[2016-12-27] MEDS: TYLENOL 325 MG PO PRN (22:48)
[2016-12-28] MEDS: Merrem 1 GM 1 G in Sodium Chloride 100ML MINI-BAG PLUS 100 ML IV SCH ×3 (01:04→18:41)
[2016-12-28] MEDS: VANCOCIN 1 GM VIAL*** 0.75 GM in Sodium Chloride 0.9% 250 ML 250 ML IV SCH ×2 (02:00→18:44)
[2016-12-28 05:42] LABS: BASOPHIL % 0.2 % (0.0-0.4); Eosinophil % 1.6 % (0.00-5.0); Granulocytes % 82.5 % (36.0-66.0); Lymphocytes % 11.5 % (24.0-44.0); Mean Cell Volume 69.5 fl (78-100); Mean Corpuscular Hemoglobin 20.1 pg (26-32); Monocytes % 4.2 % (0.0-12.0); Platelet Count 110 K/mm3 (150-450); Red Blood Count 4.52 M/mm3 (4.1-5.6); Red Cell Distribution Width 22.5 % (11.5-14.0); White Blood Count 16.1 K/mm3 (4.0-10.5)
[2016-12-28 06:02] LABS: ALBUMIN 2.6 g/dL (3.4-5.0); ALKALINE PHOSPHATASE 84 U/L (46-116); ANION GAP 12.4 MEQ/L (5-15); BILIRUBIN,TOTAL 0.3 mg/dL (0.2-1.0); BLOOD UREA NITROGEN 10 mg/dL (9-20); CHLORIDE 113 mEq/L (98-107); Carbon Dioxide 21.5 mEq/L (21-32); Glucose 79 MG/DL (70-110); Potassium 3.9 mEq/L (3.5-5.1); SGOT/AST 38 U/L (15-37); SGPT/ALT 43 U/L (12-78); SODIUM 143 mEq/L (136-145); Total Protein 5.6 gm/dL (6.4-8.2)
[2016-12-28 06:29] LABS: Hepatitis B Sur Ag Screen Non Reactive (Non Reactive)
--- NOTE | 2016-12-28 08:24 | PCM.NOTE ---
Date and Time: 12/28/16818 Subjective Assessment: He reports he has a headache and feels achy and with palpation has right upper quadrant tenderness. He reports he was able to eat ok. He reports he still wants to get help for his addiction. - Review of Systems Constitutional: No Symptoms Eyes: No Symptoms Ears, Nose, & Throat: No Symptoms Respiratory: No Symptoms Cardiac: No Symptoms Abdominal/Gastrointestinal: Abdominal Pain, No Diarrhea, No Constipation, No Appetite Changes Genitourinary Symptoms: No Symptoms Musculoskeletal: Myalgias Skin: No Symptoms Neurological: Headache Objective Exam General Appearance: no apparent distress, alert Neurologic Exam: alert, cooperative, normal mood/affect Skin Exam: normal color, warm, dry, No rash Respiratory Exam: normal breath sounds, lungs clear, No crackles/rales, No rhonchi, No wheezing Cardiovascular Exam: regular rate/rhythm, normal heart sounds, No murmur, No friction rub, No gallop Gastrointestinal/Abdomen Exam: soft, tenderness, other (right upper quadrant tenderness), No distention, No guarding Extremity Exam: other (no c/c/e) OBJECTIVE DATA Vital Signs: Vital Signs - 24 hr Temp Pulse Resp BP Pulse Ox 12/28/16 04:00 56 L 16 117/71 97 12/28/16 00:01 71 12/28/16 00:00 98.2 F 71 18 103/72 12/27/16 20:00 97.6 F 70 22 113/72 97 12/27/16 16:00 97.4 F 81 18 112/68 97 12/27/16 11:50 98 F 79 18 108/63 97 12/27/16 11:00 78 16 116/70 98 12/27/16 10:00 75 16 114/67 97 12/27/16 09:00 76 12 115/76 100 Pain Assessment - Last Documented Pain Intensity 7 Pain Scale Used 0-10 Pain Scale Intake and Output: Intake & Output 12/26/16 12/27/16 12/28/16 12/29/16 06:59 06:59 06:59 06:59 Intake Total 905 9301 2808 Output Total 3125 2550 Balance 905 6161 258 Weight 78.608 kg 83.007 kg 85.275 kg Lab Results: Lab Results-Last 24 Hours 12/27/16 12/27/16 12/27/16 Range/Units 05:00 05:23 09:53 WBC (4.0-10.5) K/mm3 RBC (4.1-5.6) M/mm3 Hgb (12.5-18.0) gm/dl Hct (42-50) % MCV (78-100) fl MCH (26-32) pg MCHC (32-36) g/dl RDW (11.5-14.0) % Plt Count (150-450) K/mm3 Gran % (36.0-66.0) % Lymphocytes % (24.0-44.0) % Monocytes % (0.0-12.0) % Eosinophils % (0.00-5.0) % Basophils % (0.0-0.4) % Basophils # (0-0.4) Sodium (136-145) mEq/L Potassium (3.5-5.1) mEq/L Chloride (98-107) mEq/L Carbon Dioxide (21-32) mEq/L Anion Gap (5-15) MEQ/L BUN (9-20) mg/dL Creatinine (0.55-1.30) mg/dl Estimated GFR ML/MIN Glucose (70-110) MG/DL Calcium (8.5-10.1) mg/dL Iron 6 L (50-175) ug/dl TIBC 269 (250-450) ug/dl Iron Saturation 2.2 L (20-39) % Total Bilirubin (0.2-1.0) mg/dL AST (15-37) U/L ALT (12-78) U/L Alkaline Phosphatase (46-116) U/L Troponin I (0.000-0.056) ng/ml Serum Total Protein (6.4-8.2) gm/dL Albumin (3.4-5.0) g/dL Ur Chlamydia DNA Probe NEGATIVE Urine GC DNA Probe NEGATIVE Hep Bs Antigen Non Reactive (Non Reactive) Hep Bs Antibody, Quant Pending Hepatitis C Antibody Weak Reactive H (Non Reactive) HIV Ag/Ab Combo Qual Pending HIV Ag/Ab Interpret Pending HIV 1&2 Antibody Pending Slides for Path Review 12/27/16 12/28/16 12/28/16 Range/Units 09:53 05:38 05:38 WBC 16.1 H (4.0-10.5) K/mm3 RBC 4.52 (4.1-5.6) M/mm3 Hgb 9.1 L (12.5-18.0) gm/dl Hct 31.4 L (42-50) % MCV 69.5 L (78-100) fl MCH 20.1 L (26-32) pg MCHC 29.0 L (32-36) g/dl RDW 22.5 H (11.5-14.0) % Plt Count 110 L (150-450) K/mm3 Gran % 82.5 H (36.0-66.0) % Lymphocytes % 11.5 L (24.0-44.0) % Monocytes % 4.2 (0.0-12.0) % Eosinophils % 1.6 (0.00-5.0) % Basophils % 0.2 (0.0-0.4) % Basophils # 0.03 (0-0.4) Sodium 143 (136-145) mEq/L Potassium 3.9 (3.5-5.1) mEq/L Chloride 113 H (98-107) mEq/L Carbon Dioxide 21.5 (21-32) mEq/L Anion Gap 12.4 (5-15) MEQ/L BUN 10 (9-20) mg/dL Creatinine 0.91 (0.55-1.30) mg/dl Estimated GFR > 60 ML/MIN Glucose 79 (70-110) MG/DL Calcium 8.1 L (8.5-10.1) mg/dL Iron (50-175) ug/dl TIBC (250-450) ug/dl Iron Saturation (20-39) % Total Bilirubin 0.3 (0.2-1.0) mg/dL AST 38 H (15-37) U/L ALT 43 (12-78) U/L Alkaline Phosphatase 84 (46-116) U/L Troponin I 0.019 (0.000-0.056) ng/ml Serum Total Protein 5.6 L (6.4-8.2) gm/dL Albumin 2.6 L (3.4-5.0) g/dL Ur Chlamydia DNA Probe Urine GC DNA Probe Hep Bs Antigen (Non Reactive) Hep Bs Antibody, Quant Hepatitis C Antibody (Non Reactive) HIV Ag/Ab Combo Qual HIV Ag/Ab Interpret HIV 1&2 Antibody Slides for Path Review Radiology Exams: Radiology Procedures Category Date Time Status CHEST 2 VIEWS (PA AND LAT) Routine Exams 12/26/16 08:31 Completed ECHO W/2D AND DOPPLER [US] Routine Exams 12/26/16 09:58 Taken GALLBLADDER [US] Urgent Exams 12/27/16 08:31 Completed Multi-Disciplinary Progress Notes: Multi-Disciplinary Progress Notes 12/27/16 14:31 Case Management Note by BRENTON JURADO SPOKE TO PT ABOUT DISCHARGE NEEDS AND PT DENIES ANY NEEDS AT THIS TIME. WILL CONTINUE TO MONITOR DISCHARGE NEEDS. Initialized on 12/27/16 14:31 - END OF NOTE 12/27/16 10:19 Pharmacy Note by HOME ADMINISTRATOR,PHARM The patient's Scr has improved to 0.96. We will change vancomycin dose to 750mg Q8H and get vancomycin trough level on 12/28/16 at 09:30. Also continue to monitor patient's Scr and adjust vancomycin dose accordingly. -Luis Singleton, PreetD Candidate Initialized on 12/27/16 10:19 - END OF NOTE Assessment/Plan (1) Sepsis Current Visit: Yes Status: Acute Assessment & Plan: Blood cultures, urine cultures no growth to date. Continue current IV antibiotics. His gallbladder US was concerning for acalculous cholecystitis. Will ask for a general surgery consult. His blood pressure is stable now and he is not requiring large boluses of fluid to maintain his blood pressure. (2) Intentional overdose of drug by injectable substance Current Visit: Yes Status: Acute Code(s): T50.902A - POISONING BY UNSP DRUG/ MEDS/BIOL SUBST, SELF-HARM, INIT (3) Substance abuse Current Visit: Yes Status: Acute Assessment & Plan: Plan for [facility] consult. Code(s): F19.10 - OTHER PSYCHOACTIVE SUBSTANCE ABUSE, UNCOMPLICATED (4) Anemia Current Visit: Yes Status: Acute Qualifiers: Iron deficiency anemia type: unspecified iron deficiency Assessment & Plan: Will start iron supplementation. Code(s): D64.9 - ANEMIA, UNSPECIFIED (5) Thrombocytopenia Current Visit: Yes Status: Acute Assessment & Plan: Stable. Most likely due to drug use and/or sepsis. (6) Chest pain Current Visit: Yes Status: Resolved Assessment & Plan: Resolved, repeat troponin was neg yesterday. Code(s): R07.9 - CHEST PAIN, UNSPECIFIED (7) Acute renal failure Current Visit: Yes Status: Resolved (8) Hypokalemia Current Visit: Yes Status: Resolved Code(s): E87.6 - HYPOKALEMIA (9) Hepatitis C antibody positive in blood Current Visit: Yes Status: Acute Assessment & Plan: Check Hep C RNA today. Code(s): R76.8 - OTHER SPECIFIED ABNORMAL IMMUNOLOGICAL FINDINGS IN SERUM
[2016-12-28] MEDS: FEOSOL 325 MG PO SCH ×3 (09:14→23:17)
[2016-12-28] MEDS: THERAGRAN MULTIVITAMIN PO SCH (09:14)
[2016-12-28] MEDS: TYLENOL 325 MG PO PRN (09:14)
[2016-12-28] MEDS ORDERED: TROUGH DRUG LEVELS IJ ONE (09:30)
[2016-12-28 10:53] LABS: Hepatitis B Surface Ab.Quant 8.56 mIU/mL (0.00-8.49)
--- NOTE | 2016-12-28 14:07 | XRAY ---
Indication: Right upper quadrant pain. Vomiting and diarrhea. Abnormal gallbladder ultrasound. Comparison: None Patient received 5.9 mCi technetium 99 Choletec. Immediate anterior planar imaging was performed for 75 minutes. Normal hepatic activity on the first image. Normal biliary and gallbladder activity within 10 minutes. Normal biliary to bowel activity within 30 minutes. Patient then ingested 8 ounces of Ensure Plus. Ejection fraction calculated 22%, low. Impression: HIDA scan portion of the exam is normal. Low ejection fraction 22%. Rule out chronic cholecystitis.
[2016-12-28] MEDS: VANCOCIN 1 GM VIAL*** 1 GM in Sodium Chloride 0.9% 250 ML 250 ML IV SCH ×2 (16:23→23:19)
[2016-12-28] MEDS ORDERED: VANCOCIN 1 GM VIAL*** 1 GM in Sodium Chloride 0.9% 250 ML 250 ML IV SCH (18:00)
[2016-12-28] MEDS ORDERED: Lactated Ringers 1,000 ML IV ONE ×2 (20:41→20:52)
[2016-12-28] MEDS ORDERED: Sensorcaine 0.25% 10 ML ONE (20:52)
[2016-12-28] MEDS ORDERED: Quelicin Fliptop 200 MG/10 ML IV ONE (21:00)
[2016-12-28] MEDS ORDERED: TORAdol 30 mg Injection IV ONE (21:00)
[2016-12-28] MEDS ORDERED: DIPRIVAN 200 MG/20 ML IV ONE (21:00)
[2016-12-28] MEDS ORDERED: Lactated Ringers 1,000 ML IV SCH (21:00)
[2016-12-28] MEDS ORDERED: SUBLIMAZE 100 MCG/2 ML IV ONE (21:00)
[2016-12-28] MEDS ORDERED: Decadron 4 MG INJ IV ONE (21:00)
[2016-12-28] MEDS ORDERED: DILAUDID 2 MG INJECTION IV ONE (21:00)
[2016-12-28] MEDS ORDERED: Zemuron 100 MG/10 ML IV ONE (21:00)
[2016-12-28] MEDS ORDERED: Zofran 4 MG/2 ML VIAL IV ONE (21:00)
[2016-12-28] MEDS: Dextrose 5% -0.45 NaCl 1000 ML 1,000 ML IV SCH (21:16)
[2016-12-29] MEDS: D5W/0.45NS W/ 20mEq KCl 1000 ML 1,000 ML IV SCH ×2 (02:05→17:39)
[2016-12-29] MEDS: Merrem 1 GM 1 G in Sodium Chloride 100ML MINI-BAG PLUS 100 ML IV SCH ×3 (02:05→17:39)
[2016-12-29] MEDS ORDERED: NORCO 5/325 MG ONE ×2 (02:10→06:21)
[2016-12-29] MEDS: NORCO 5/325 MG PO PRN ×4 (02:13→22:04)
[2016-12-29 05:55] LABS: Mean Corpuscular Hemoglobin 19.7 pg (26-32); Platelet Count 116 K/mm3 (150-450); Red Blood Count 4.97 M/mm3 (4.1-5.6); Red Cell Distribution Width 22.5 % (11.5-14.0); White Blood Count 9.5 K/mm3 (4.0-10.5)
[2016-12-29] MEDS: VANCOCIN 1 GM VIAL*** 1 GM in Sodium Chloride 0.9% 250 ML 250 ML IV SCH (06:23)
[2016-12-29 07:10] LABS: ALBUMIN 2.9 g/dL (3.4-5.0); ALKALINE PHOSPHATASE 92 U/L (46-116); ANION GAP 12.2 MEQ/L (5-15); BILIRUBIN,TOTAL 0.2 mg/dL (0.2-1.0); BLOOD UREA NITROGEN 8 mg/dL (9-20); CHLORIDE 109 mEq/L (98-107); Carbon Dioxide 26.1 mEq/L (21-32); Glucose 176 MG/DL (70-110); Potassium 4.9 mEq/L (3.5-5.1); SGOT/AST 34 U/L (15-37); SGPT/ALT 40 U/L (12-78); SODIUM 142 mEq/L (136-145); Total Protein 6.5 gm/dL (6.4-8.2)
[2016-12-29] MEDS: FEOSOL 325 MG PO SCH ×3 (10:12→22:04)
[2016-12-29] MEDS: THERAGRAN MULTIVITAMIN PO SCH (10:12)
--- NOTE | 2016-12-29 12:26 | PCM.NOTE ---
Date and Time: 12/29/16 1221 Subjective Assessment: He reports he has had some stomach cramping today but his nurses documented he was able to eat last night. He states he does not feel like he is passing gas. He is wanting to go to a facility for treatment of his addiction. He still feels like his fingers and feet are a little swollen. - Review of Systems Constitutional: No Symptoms Eyes: No Symptoms Ears, Nose, & Throat: No Symptoms Respiratory: No Symptoms Cardiac: No Symptoms Abdominal/Gastrointestinal: Abdominal Pain, No Nausea, No Vomiting, No Diarrhea , No Constipation Genitourinary Symptoms: No Symptoms Musculoskeletal: No Symptoms Skin: No Symptoms Neurological: No Symptoms Objective Exam General Appearance: no apparent distress, alert Neurologic Exam: alert, cooperative, normal mood/affect Skin Exam: normal color, warm, dry, No rash Respiratory Exam: normal breath sounds, lungs clear, No crackles/rales, No rhonchi, No wheezing Cardiovascular Exam: regular rate/rhythm, normal heart sounds, No murmur, No friction rub, No gallop Gastrointestinal/Abdomen Exam: soft, normal bowel sounds, tenderness, other ( bandaids in place over surgical sites.), No distention, No mass, No guarding Extremity Exam: normal inspection, other (no c/c/e) OBJECTIVE DATA Vital Signs: Vital Signs - 24 hr Temp Pulse Resp BP Pulse Ox 12/29/16 09:00 98.4 F 62 134/81 95 12/29/16 07:29 95 12/29/16 02:20 98.4 F 62 16 134/81 94 L 12/29/16 01:20 98.5 F 81 16 133/75 96 12/29/16 00:20 98.6 F 84 16 134/77 96 12/28/16 23:50 98.0 F 74 16 133/71 99 12/28/16 23:20 98.0 F 65 14 141/91 95 12/28/16 23:05 97.9 F 61 16 141/94 93 L 12/28/16 20:00 98.3 F 68 16 137/89 97 12/28/16 16:00 98.5 F 67 20 132/91 99 Oxygen-Last 24 hours O2 Percentage 3 Liters = 32% O2 Percentage 3 Liters = 32% O2 Percentage 3 Liters = 32% O2 Percentage 3 Liters = 32% Pain Assessment - Last Documented Pain Intensity 4 Pain Scale Used 0-10 Pain Scale Intake and Output: Intake & Output 12/27/16 12/28/16 12/29/16 12/30/16 06:59 06:59 06:59 06:59 Intake Total 9301 2808 1668 Output Total 3127 3071 4100 Balance 6138 258 -2432 Weight 83.007 kg 85.275 kg 85.275 kg Lab Results: Lab Results-Last 24 Hours 12/29/16 12/29/16 Range/Units 05:36 05:36 WBC 9.5 (4.0-10.5) K/mm3 RBC 4.97 (4.1-5.6) M/mm3 Hgb 9.8 L (12.5-18.0) gm/dl Hct 34.3 L (42-50) % MCV 69.0 L (78-100) fl MCH 19.7 L (26-32) pg MCHC 28.6 L (32-36) g/dl RDW 22.5 H (11.5-14.0) % Plt Count 116 L (150-450) K/mm3 Sodium 142 (136-145) mEq/L Potassium 4.9 (3.5-5.1) mEq/L Chloride 109 H (98-107) mEq/L Carbon Dioxide 26.1 (21-32) mEq/L Anion Gap 12.2 (5-15) MEQ/L BUN 8 L (9-20) mg/dL Creatinine 0.94 (0.55-1.30) mg/dl Estimated GFR > 60 ML/MIN Glucose 176 H (70-110) MG/DL Calcium 8.8 (8.5-10.1) mg/dL Total Bilirubin 0.2 (0.2-1.0) mg/dL AST 34 (15-37) U/L ALT 40 (12-78) U/L Alkaline Phosphatase 92 (46-116) U/L Serum Total Protein 6.5 (6.4-8.2) gm/dL Albumin 2.9 L (3.4-5.0) g/dL Radiology Exams: Radiology Procedures Category Date Time Status HIDA-GALL BLADDER [NUCMED] Urgent Exams 12/28/16 12:30 Completed Multi-Disciplinary Progress Notes: Multi-Disciplinary Progress Notes 12/28/16 23:24 Respiratory Note by Mayank Akhtar CALL FROM PSYCHOLOGIST ENGINEERING THAT PT WAS BACK FROM SURGERY AND O2 SATS WERE LOW. SHE STATED SHE PLACED PT ON 3LPM NC. I PLACED AN ORDER AND WILL ASSESS PT. Initialized on 12/28/16 23:24 - END OF NOTE 12/28/16 15:21 Case Management Note by Karen Drummond PT WAS MOVED TO [facility] TODAY FROM ICU. INDEPENDENT WITH ALL AD'S HAS OWN APARTMENT. HAD A [facility] CONSULT TODAY WAITING ON RECOMMENDATIONS FROM THEM. ALSO HAS A HIDA SCAN TODAY . POSSIBLE SURGERY TODAY OR TOMORROW. WILL CONT TO MONITOR ALL NEEDS. Initialized on 12/28/16 15:21 - END OF NOTE Assessment/Plan (1) Sepsis Current Visit: Yes Status: Acute Assessment & Plan: His WBC count is normal now and his blood cultures have been no growth to date. Will stop vancomycin today and continue with meropenem. He had his gallbladder taken out yesterday as this may have been contributing to the sepsis if it was infected as was my concern with his right upper quadrant abdominal pain. (2) Intentional overdose of drug by injectable substance Current Visit: Yes Status: Acute Code(s): T50.902A - POISONING BY UNSP DRUG/ MEDS/BIOL SUBST, SELF-HARM, INIT (3) Substance abuse Current Visit: Yes Status: Acute Assessment & Plan: [facility] consult completed and they are working on placement for him as an inpatient. Code(s): F19.10 - OTHER PSYCHOACTIVE SUBSTANCE ABUSE, UNCOMPLICATED (4) Anemia Current Visit: Yes Status: Acute Qualifiers: Iron deficiency anemia type: unspecified iron deficiency Assessment & Plan: Stable. Continue iron supplementation. Code(s): D64.9 - ANEMIA, UNSPECIFIED (5) Thrombocytopenia Current Visit: Yes Status: Acute Assessment & Plan: Stable. (6) Hepatitis C antibody positive in blood Current Visit: Yes Status: Acute Assessment & Plan: Hep C RNA pending. Discussed with patient that there is treatment available if his Hep C RNA does come back as positive but if he continued to use IV drugs, he could be reexposed. Code(s): R76.8 - OTHER SPECIFIED ABNORMAL IMMUNOLOGICAL FINDINGS IN SERUM (7) Abdominal pain Current Visit: Yes Status: Acute Assessment & Plan: s/p cholecystectomy, improving. Code(s): R10.9 - UNSPECIFIED ABDOMINAL PAIN
--- NOTE | 2016-12-29 15:14 | CONS ---
CONSULT DATE: 12/28/16 HISTORY OF PRESENT ILLNESS: 31 y/o gentleman apparently got admitted a couple of days ago trying to get high off of crushing and injecting Adderall. Had some nausea and right upper quadrant pain since he had been in the hospital here. We did an US that showed some wall thickening. He did not have any stones, but he had a HIDA that showed ejection fraction that was low consistent with what they felt was some dyskinesia, 22%. PAST MEDICAL HISTORY: He has had some illicit drug use and abuse. HOME MEDICATIONS: No prescribed medications on a regular basis. ALLERGIES: NKDA. FAMILY HISTORY: Heart disease and chronic obstructive pulmonary disease. He denied any family history of Crohn's disease or celiac disease. SOCIAL HISTORY: 1/2 pack per day smoker and using marijuana and prescription drugs that are not his. PAST SURGICAL HISTORY: Had a hemorrhoidectomy. He denied any prior abdominal surgeries. REVIEW OF SYSTEMS: 12 systems reviewed per admission assessment and H&P. No current chest pain or palpitations. He was positive for amphetamines and THC on his drug screen when he was admitted. PHYSICAL EXAMINATION: GENERAL: Slightly uncomfortable, otherwise no acute distress. HEENT: Sclerae nonicteric. NECK: No JVD. CHEST: Equal excursion. Nonlabored breathing. CVS: Regular rhythm. ABDOMEN: Soft. Some tenderness in right upper quadrant. No peritoneal signs. EXTREMITIES: No significant edema. NEURO: Alert, moving extremities grossly symmetrically. No gross motor deficits noted. WBC was 16. Hgb 9.1 at one point. He had liver function tests. Supposedly, his bilirubin was okay. AST and ALT 45 and 50 and Alk. phos. 71 when it was done yesterday. IMPRESSION: 1. 31 YEAR OLD GENTLEMAN WITH HISTORY OF SOME DRUG ABUSE, BUT ALSO WITH SOME RIGHT UPPER QUADRANT PAIN AND THICKENING GALLBLADDER WALL ON ULTRASOUND. HIDA SCAN SHOWING ABNORMAL EJECTION FRACTION. NOT SURE WHETHER HE HAS GOT SOME ACUTE EXACERBATION OF CHRONIC CHOLECYSTITIS WELL DYSKINESIA. FEEL HE WOULD BENEFIT FROM CHOLECYSTECTOMY. Risks and benefits explained in detail, but not limited to, bleeding; infection; risk of trocar injury or hernia; small risk of bowel, bladder, or blood vessel injury; small risk of bile leak, bile duct injury, or retained stone or sludge possibly requiring further procedures either open or endoscopic retrograde cholangiopancreatography; general risk of anesthesia, deep vein thrombosis, pulmonary embolism, or pneumonia; perioperative risks of aches, pains, bloating, constipation and/or loose stools possibly chronic in nature; possibility that this procedure may not improve his symptoms and he may need further work-up and/or testing, endoscopy or other studies or procedures. He understands and agrees to the plan. Will proceed with laparoscopic cholecystectomy, possible open when OR time available. Thank you for the consult.
--- NOTE | 2016-12-29 15:22 | OP ---
SURGERY DATE: 12/28/16 SURGERY TIME: PREOPERATIVE DIAGNOSIS: 1. SYMPTOMATIC BILIARY DYSKINESIA, ACALCULUS CHRONIC CHOLECYSTITIS. POSTOPERATIVE DIAGNOSIS: 1. SYMPTOMATIC BILIARY DYSKINESIA, ACALCULUS CHRONIC CHOLECYSTITIS. PROCEDURE: 1. Laparoscopic cholecystectomy. SURGEON: Dr. Ignacio Carey. ANESTHESIA: General. ESTIMATED BLOOD LOSS: Minimal. INDICATIONS: As noted above. Risks and benefits explained in detail, but not limited to. Consent was obtained. DESCRIPTION OF PROCEDURE AND FINDINGS: The patient was taken to the OR. General anesthesia was induced. The abdomen was prepped and draped in the usual sterile fashion. After official time-out, no disagreement in planned procedure. Transverse incision made at the supraumbilical area. Fascia grasped and pulled upward. Veress needle inserted. Tested with saline. Pneumoperitoneum accomplished insufflating from an opening pressure of 0-15. 11 mm bladeless port and camera inserted without difficulty followed by two 5 mm right upper quadrant ports and 5 mm epigastric port. The gallbladder was grasped and retracted away from the liver. Dissection from posterolateral to anterior fashion. The main cystic artery was isolated directly on the gallbladder wall and clipped X 3 and divided. The cystic duct/infundibular junction was slowly, carefully well skeletonized so the critical view was obtained both anteriorly and posteriorly. Once this was accomplished, the cystic duct was clipped X 3 and divided. The gallbladder was slowly, carefully dissected free from its dense, almost concrete attachments to the liver bed staying directly on the gallbladder wall clipping additional oozing side branches off the cystic artery directly on the gallbladder wall as necessary. Just prior to releasing the final attachments to the anterior edge of the liver, the liver bed reinspected. Clips noted to be in placed in the cystic duct/cystic artery stumps. There were no signs of any active bleeding or bile leakage. It was felt there was benefit of drain placement. At this point, again the gallbladder had been pulled up and out the umbilical port site and passed off. The umbilical 10-11 port sites were closed with puncture closure device and #1 Vicryl under direct vision with the camera. Pneumoperitoneum decompressed. Wounds irrigated out. Skin incisions closed with 4-0 Vicryl. Steri-strips and sterile dressing applied. 0.25% Marcaine local had been injected along each skin incision and fascial defect. The patient tolerated the procedure well. There were no immediate complications. Findings were discussed with the family out in the waiting area. He was transferred to recovery in stable condition.
[2016-12-29 16:53] LABS: Platelet Estimate DECREASED (NORMAL); Total Cells Counted 100
[2016-12-29 16:54] LABS: ANISOCYTOSIS 2+; Hypochromia 1+; Microcytosis 2+
--- NOTE | 2016-12-29 16:54 | ECHO ---
DATE: 12/26/16 A transthoracic echocardiograph examination with color Doppler study was done. INDICATION: Patient has history of IV drug use. IMPRESSION: 1. NO REGIONAL WALL MOTION ABNORMALITY WITH ESTIMATED GLOBAL LEFT VENTRICULAR EJECTION FRACTION AROUND 60%. 2. TRACE TRICUSPID REGURGITATION WITH RIGHT VENTRICULAR SYSTOLIC PRESSURE OF 36 MM OF MERCURY. The left ventricle was visualized and demonstrated adequate motion of all the segments with estimated global left ventricular ejection fraction around 60%. Left ventricle thickness is normal. The mitral valve was seen and this opens adequately. No significant mitral regurgitation is seen. The left atrium is normal. The aortic valve opens adequately. The right-sided chambers are normal. There is trace tricuspid regurgitation with right ventricular systolic pressure of 36 mm Hg.
[2016-12-29] MEDS ORDERED: SENOKOT 8.6 MG PO PRN (22:32)
[2016-12-30] MEDS: Merrem 1 GM 1 G in Sodium Chloride 100ML MINI-BAG PLUS 100 ML IV SCH (02:06)
[2016-12-30] MEDS ORDERED: TROUGH DRUG LEVELS IJ ONE (05:30)
[2016-12-30 06:11] LABS: Mean Cell Volume 68.2 fl (78-100); Mean Corpuscular Hemoglobin 20.2 pg (26-32); Platelet Count 134 K/mm3 (150-450); White Blood Count 7.6 K/mm3 (4.0-10.5)
[2016-12-30] MEDS: NORCO 5/325 MG PO PRN (08:40)
[2016-12-30] MEDS: THERAGRAN MULTIVITAMIN PO SCH (09:39)
[2016-12-30] MEDS: FEOSOL 325 MG PO SCH ×3 (09:39→22:08)
[2016-12-30] MEDS: Colace 100 MG PO SCH ×2 (09:39→22:08)
--- NOTE | 2016-12-30 11:15 | PCM.NOTE ---
Date and Time: 12/30/16 1109 Subjective Assessment: He reports he has had a headache this AM but it was better with his pain medication for his abdomen. He states he feels constipated and does not feel like he has passed gas since his surgery. He is agreeable to getting help with his addiction and we are waiting on placement for this. His Hep C RNA that was ordered was automatically cancelled by the computer system so this is being sent today per lab when I called to ask them about this. He reports the swelling in his hands is better. - Review of Systems Constitutional: No Symptoms Eyes: No Symptoms Ears, Nose, & Throat: No Symptoms Respiratory: No Symptoms Cardiac: No Symptoms Abdominal/Gastrointestinal: Abdominal Pain, Constipation Genitourinary Symptoms: No Symptoms Musculoskeletal: No Symptoms Skin: No Symptoms Neurological: Headache Objective Exam General Appearance: no apparent distress, alert Neurologic Exam: alert, cooperative, normal mood/affect Skin Exam: normal color, warm, dry, No rash Respiratory Exam: normal breath sounds, lungs clear, No crackles/rales, No rhonchi, No wheezing Cardiovascular Exam: regular rate/rhythm, normal heart sounds, No murmur, No friction rub, No gallop Gastrointestinal/Abdomen Exam: soft, tenderness, other (hypoactive bowel sounds) , No distention, No mass Extremity Exam: other (no c/c/e) OBJECTIVE DATA Vital Signs: Vital Signs - 24 hr Temp Pulse Resp BP Pulse Ox 12/30/16 07:23 98.2 F 50 L 20 133/81 97 12/30/16 06:48 17 12/30/16 04:00 98.4 F 67 15 133/84 97 12/30/16 02:54 16 12/29/16 23:43 98.4 F 69 18 127/82 99 12/29/16 23:00 17 12/29/16 20:00 98.3 F 67 16 135/81 98 12/29/16 16:00 98.3 F 74 20 125/77 96 Pain Assessment - Last Documented Pain Intensity 10 Pain Scale Used 0-10 Pain Scale Intake and Output: Intake & Output 12/28/16 12/29/16 12/30/16 12/31/16 06:59 06:59 06:59 06:59 Intake Total 2805 1668 2882 Output Total 2550 4100 850 300 Balance 258 -2432 2032 -300 Weight 85.275 kg 87.18 kg 86.545 kg Lab Results: Lab Results-Last 24 Hours 12/29/16 12/30/16 Range/Units 05:36 04:00 WBC 9.5 7.6 (4.0-10.5) K/mm3 RBC 4.97 4.50 (4.1-5.6) M/mm3 Hgb 9.8 L 9.1 L (12.5-18.0) gm/dl Hct 34.3 L 30.7 L (42-50) % MCV 69.0 L 68.2 L (78-100) fl MCH 19.7 L 20.2 L (26-32) pg MCHC 28.6 L 29.6 L (32-36) g/dl RDW 22.5 H 22.0 H (11.5-14.0) % Plt Count 116 L 134 L (150-450) K/mm3 Segmented Neutrophils 87 H (36.-66.) % Lymphocytes (Manual) 10 L (24-44) % Monocytes (Manual) 3 (0.0-12.0) % Differential Comment ABNORMAL Platelet Estimate DECREASED (NORMAL) Hypochromasia 1+ Anisocytosis 2+ Microcytosis 2+ Radiology Exams: Radiology Procedures Category Date Time Status HIDA-GALL BLADDER [NUCMED] Urgent Exams 12/28/16 12:30 Completed Multi-Disciplinary Progress Notes: Multi-Disciplinary Progress Notes 12/29/16 14:22 Case Management Note by Jennifer Lester S/W CHINTAN AT THE [facility], , SHE IS LOOKING OVER CHART, REVIEWING WITH HER PALLIATIVE NURSE IN FLIGHT TECHNICIAN. THEY HAVE PLACED A BEDHOLD AT [facility] ON FOR INPT FOR THIS PT, THEY WILL REQUIRE UPDATED LABS AND CLINICAL INFORMATION TOMORROW, PROBABLE ANOTHOER TELEMENTAL TO DETERMINE IF PT IS STILL IN NEED OF INPT. S/W DR. RIBEIRO AND SHE WILL NOT BE DISCHARGING PT UNTIL AT LEAST TOMORROW. IF THEY HAVE ANY DISCHARGES, CHINTAN WILL TRY TO WORK HIM IN TOMORROW. SHE WILL ALSO CONTACT OTHER FACILITIES IN THE AREA FOR INPT TREATMENT. AT THIS TIME PT IS NOT MEDICALLY OR PSYCHOLOGICALLY STABLE FOR D/C. WILL CONTINUE TO MONITOR FOR ALL D/C NEEDS. Initialized on 12/29/16 14:22 - END OF NOTE Assessment/Plan (1) Sepsis Current Visit: Yes Status: Resolved Assessment & Plan: Resolved. Blood cultures are now growth to date. He has been on IV antibiotics x 5 days and WBC is normal now as well as blood pressure. He has had his gallbladder removed which may have been contributing to this. (2) Intentional overdose of drug by injectable substance Current Visit: Yes Status: Resolved Assessment & Plan: Patient is clinically stable for placement in inpatient [facility] hospital for treatment. Code(s): T50.902A - POISONING BY UNSP DRUG/MEDS/BIOL SUBST, SELF-HARM, INIT (3) Substance abuse Current Visit: Yes Status: Acute Code(s): F19.10 - OTHER PSYCHOACTIVE SUBSTANCE ABUSE, UNCOMPLICATED (4) Anemia Current Visit: Yes Status: Acute Qualifiers: Iron deficiency anemia type: unspecified iron deficiency Assessment & Plan: Continue iron supplementation. Code(s): D64.9 - ANEMIA, UNSPECIFIED (5) Thrombocytopenia Current Visit: Yes Status: Acute Assessment & Plan: Improving and stable. (6) Hepatitis C antibody positive in blood Current Visit: Yes Status: Acute Assessment & Plan: Hep C RNA test ordered. No results back yet. Code(s): R76.8 - OTHER SPECIFIED ABNORMAL IMMUNOLOGICAL FINDINGS IN SERUM (7) Abdominal pain Current Visit: Yes Status: Acute Assessment & Plan: s/p cholecystectomy. Continue hydrocodone as needed here but if he goes home, he should not get any scripts for controlled medications. Code(s): R10.9 - UNSPECIFIED ABDOMINAL PAIN (8) Constipation Current Visit: Yes Status: Acute Assessment & Plan: Continue docusate and senna. Nursing to let surgeons know he does not feel like he is passing gas. Code(s): K59.00 - CONSTIPATION, UNSPECIFIED
[2016-12-30] MEDS ORDERED: Sodium Chloride 0.9% 10 ML FLUSH Syringe IV PRN (11:27)
[2016-12-30] MEDS: Sodium Chloride 0.9% 10 ML FLUSH Syringe IV SCH ×2 (11:41→22:16)
[2016-12-30] MEDS: TYLENOL 325 MG PO PRN ×2 (12:07→22:13)
[2016-12-30 14:19] LABS: Eosinophil 2 % (0.00-3.0); Platelet Estimate DECREASED (NORMAL); Total Cells Counted 100
[2016-12-30 14:20] LABS: ANISOCYTOSIS 1+; Hypochromia 2+; Microcytosis 2+; Polychromasia 1+
[2016-12-31] MEDS: D5W/0.45NS W/ 20mEq KCl 1000 ML 1,000 ML IV SCH (00:43)
[2016-12-31] MEDS: Sodium Chloride 0.9% 10 ML FLUSH Syringe IV SCH ×2 (05:40→15:00)
[2016-12-31] MEDS: Colace 100 MG PO SCH (09:19)
[2016-12-31] MEDS: THERAGRAN MULTIVITAMIN PO SCH (09:19)
[2016-12-31] MEDS: FEOSOL 325 MG PO SCH ×2 (09:19→15:00)
[2016-12-31 20:06] VITALS: BP 135/87; PULSE 72; O2SAT 96
--- NOTE | 2017-01-03 13:06 | DS ---
DISCHARGE DIAGNOSES: 1) SEPSIS. 2) INTENTIONAL OVERDOSE. 3) SUBSTANCE ABUSE. 4) ANEMIA. 5) THROMBOCYTOPENIA. 6) HEPATITIS C ANTIBODY POSITIVE. 7) ABDOMINAL PAIN. 8) CONSTIPATION. DISCHARGE PHYSICAL EXAMINATION: VITALS: Temperature current 98.5F, temperature max 99F, heart rate 47 to 74, respiratory rate 16 to 20, blood pressure 127 to 137 over 76 to 87. Oxygen saturation 96 to 99% on room air. GENERAL: The patient is lying in bed in no acute distress, a pleasant talkative man with his grandmother at the bedside. CVS: He has a regular rate and rhythm. No murmurs, gallops or rubs are appreciated. CHEST: Clear to auscultation bilaterally. No crackles or wheezes. ABDOMEN: Mildly tender. No guarding. No rigidity. He has Steri-Strips over healing scars from his surgery. EXTREMITIES: No clubbing, cyanosis or edema. SKIN: With tattoos. Warm, dry and intact. HOSPITAL COURSE: 1) SEPSIS: The patient had a temperature up to 100.8F on the floor. Initially his symptoms were all thought to be from IV drug overdose. The morning of 12/26/2016 his mean arterial pressure was low. I was contacted by the pharmacist around noontime concerning this and gave an order for 1 liter normal saline bolus. The patient also had some elevated white blood cell count on admission 15,900 and then 23,400 so I had started him on Vancomycin and Meropenem earlier that morning after I rechecked lactic acid and it was elevated. Dr. Willie Clark critical care was consulted and the patient was given IV fluid resuscitation and required over five liters of acetonic solution to keep his blood pressure above a mean arterial pressure of 65. The patient seemed to respond well to the fluid boluses. He had blood cultures that were in lab from the emergency room and these were no growth. We rechecked a chest x-ray that showed no acute changes. He also had a urine culture that had been requested on 12/26/2016 that was no growth. On 12/27/2016, the patient developed right upper quadrant pain so gallbladder ultrasound was checked and was found to show gallbladder wall thickening and pericholecystic fluid but no gallstones. The general surgeons were contacted and had a HIDA scan done which showed a low ejection fraction and they decided to go ahead and proceed with surgery. It is unclear if the gallbladder may have contributed to the sepsis or not. He was continued on IV antibiotics for five days. His white blood cell count normalized after his gallbladder was taken out. He no longer had fever. His blood pressure was stable as well and he was taking fluids by mouth. 2) INTENTIONAL OVERDOSE: He had told the emergency room doctor when he came in that he had used Adderall through an IV. He was again given supportive care and the patient expressed a wish to have intervention as an inpatient. He was evaluated by [facility] two different times. The last evaluation stated that he did not meet inpatient criteria and will need to be seen as an outpatient which the patient was agreeable to doing. At that point there was no further medical reason to keep him in the hospital. He was discharged to follow up. 3) ANEMIA: He was anemic with a hemoglobin to 8.2. His iron studies were checked. His iron level was low at 6. TRBC was normal at 269 so he was started on ferrous sulfate 325 mg t.i.d. and he was discharged on this as well. 4) THROMBOCYTOPENIA. His platelet count was low throughout his hospitalization. It was normal when he first came in to the emergency room at 189 and at the time of discharge it was 134. He had no signs of any bleeding. 5) HEPATITIS C ANTIBODY POSITIVE: Given his history of substance abuse a high risk profile was checked and hepatitis C antibody was positive. An HCV RNA was ordered and was not back at the time of his discharge. 6) ABDOMINAL PAIN: This resolved after he had his gallbladder taken out. 7) CONSTIPATION: He did develop some constipation after his surgery that required oral stimulants and stool softeners. 8) HISTORY OF SUBSTANCE ABUSE: The patient was counseled extensively that he should not be using medications that are not his. He should not be injecting medications or using illicit drugs. He seems to understand this. We tried to stress the importance of not using illicit substances and especially not using IV drugs as there is increased risk with both of these to his health. He was discharged to home in fair condition. He was to take ferrous sulfate 325 mg t.i.d. and a multivitamin 1 tablet daily. FOLLOW UP: He is to follow up with the [facility] as scheduled by them and with myself for follow up from the hospital.
== END 2016-12-31 19:44 | disposition home or self-care (01) | DRG 854 ==
LOC: ED 21:35 → ICU 12-26 00:25 → OBSVTOIN 12-26 04:34 → MED SURG 12-28 13:45
PROVIDERS: ADMIT Internal Medicine; ATTEND Internal Medicine
PROC: 0FT44ZZ Resection of Gallbladder, Percutaneous Endoscopic Approach (ICD-10-PCS; principal; 2016-12-28)
DX: A41.9 Sepsis, unspecified organism (principal); N17.9 Acute kidney failure, unspecified; K80.10 Calculus of gallbladder with chronic cholecystitis without obstruction; T43.622A Poisoning by amphetamines, intentional self-harm, initial encounter; D64.9 Anemia, unspecified; D69.6 Thrombocytopenia, unspecified; B19.20 Unspecified viral hepatitis C without hepatic coma; R10.9 Unspecified abdominal pain; K59.00 Constipation, unspecified; D72.829 Elevated white blood cell count, unspecified; K82.8 Other specified diseases of gallbladder; F19.10 Other psychoactive substance abuse, uncomplicated; R07.9 Chest pain, unspecified; E87.6 Hypokalemia; R76.8 Other specified abnormal immunological findings in serum
CPT/HCPCS: 00790; 36000; 36415; 71010; 71020; 76705; 78226; 80053; 80202; 80307; 80320; 81000; 81002; 82150; 82550; 82805; 82962; 83540; 83550; 83605; 83690; 83986; 84484; 85025; 86317; 86592; 86701; 86702; 86803; 87040; 87086; 87340; 87389; 87491; 87522; 87591; 88304; 90791; 93005; 93306; 94760; 96360; 96361; 96365; 96368; 96374; 96375; 99140; 99285; A9537; G0481; J0330; J1100; J1170; J1885; J2405; J2704; J3010; J3370; P9612; Q3014; A9270-GY

== ENCOUNTER 2017-04-15 13:08 | Emergency (ER) | payer OTHER ==
[2017-04-15] MEDS ORDERED: Adacel Vial IM ONE ×2 (13:14→13:58)
[2017-04-15 13:15] VITALS: O2SAT 97
--- NOTE | 2017-04-15 13:49 | XRAY ---
Indication: Pain following fall. Multiple contiguous axial images obtained through the cervical spine. Sagittal and coronal reformatted images obtained. Comparison: None Axial images negative for acute fracture, suspicious bony lesions, or spinal canal stenosis. Sagittal and coronal reformatted images demonstrates mild lordotic reversal, positional versus paraspinal muscular spasm. Disc spaces maintained. No acute compression fracture, subluxation, or jumped facet. Normal-appearing craniocervical junction. Visualized noncontrasted soft tissues including lung apices unremarkable. CT head reported separately. Impression: Lordotic reversal, positional versus paraspinal spasm. Remaining CT cervical spine negative. CT DI 47.82
--- NOTE | 2017-04-15 13:52 | XRAY ---
Indication: Pain following fall. Multiple contiguous axial images obtained through the head without contrast. Comparison: None Normal appearing brain parenchyma, ventricles, and bony calvarium. Minimal mucosal thickening of both ethmoid, left sphenoid, and right maxillary sinuses. Mastoid air cells clear. Impression: Normal CT head without contrast exam. Incidental paranasal sinus disease. CT DI 51.90
[2017-04-15] MEDS ORDERED: BACIGUENT PACKET TP ONE (13:55)
[2017-04-15] MEDS ORDERED: XYLOCAINE 1% HCL 20 ML MDV IJ ONE (13:55)
[2017-04-15] MEDS ORDERED: XYLOCAINE 1% HCL 20 ML MDV ONE (13:58)
[2017-04-15] MEDS ORDERED: BACIGUENT PACKET ONE (13:58)
[2017-04-15] MEDS ORDERED: NORCO 5/325 MG PO ONE (14:11)
[2017-04-15] MEDS ORDERED: NORCO 5/325 MG ONE (14:16)
--- NOTE | 2017-04-15 14:18 | ERPHSYRPT ---
- History of Present Illness Time Seen by Provider: 04/15/17 13:15 Source: patient, family, EMS Exam Limitations: no limitations Patient Subjective Stated Complaint: PT STATES HE TRIPPED AND FELL ON ANIMAL TRAP IN GARAGE,POSSIBLE LOC AT THAT TIME, PT ARRIVED IN C COLLAR, HAS LACERATION TO HEAD, PT CO FEELING DAZED AND DIZZY, Triage Nursing Assessment: PT ALERT, RESP EASY, SKIN W/D, PINK,LACERATION TO RIGHT SIDE OF HEAD, LACERATION 8 1/2 CM IN LENGHT Occurred: just prior to arrival Severity: moderate Head Injury Location: temporal Method of Injury: fell, incised Loss of Consciousness: brief (seconds) Associated Symptoms: denies symptoms Allergies/Adverse Reactions: No Known Drug Allergies Allergy (Verified 04/15/17 13:17) Home Medications: Buspirone HCl [Buspar] 10 mg BID 04/15/17 [History] Fluoxetine HCl 20 mg [Prozac 20 MG] 20 mg DAILY 04/15/17 [History] Hx Tetanus, Diphtheria Vaccination/Date Given: No Hx Influenza Vaccination/Date Given: No Hx Pneumococcal Vaccination/Date Given: No Immunizations Up to Date: Yes - Review of Systems Constitutional: No Symptoms Eyes: No Symptoms Ears, Nose, & Throat: No Symptoms Respiratory: No Symptoms Cardiac: No Symptoms Abdominal/Gastrointestinal: No Symptoms Genitourinary Symptoms: No Symptoms Musculoskeletal: No Symptoms Skin: No Symptoms Neurological: No Symptoms Psychological: No Symptoms Endocrine: No Symptoms Hematologic/Lymphatic: No Symptoms Immunological/Allergic: No Symptoms - Past Medical History Pertinent Past Medical History: Yes Neurological History: No Pertinent History ENT History: No Pertinent History Cardiac History: No Pertinent History Respiratory History: No Pertinent History Endocrine Medical History: No Pertinent History Musculoskeletal History: No Pertinent History GI Medical History: Hemorrhoids History: No Pertinent History Psycho-Social History: No Pertinent History Male Reproductive Disorders: No Pertinent History Other Medical History: ANEMIA. - Past Surgical History Past Surgical History: Yes Neuro Surgical History: No Pertinent History Cardiac: No Pertinent History Respiratory: No Pertinent History Gastrointestinal: Cholecystectomy Genitourinary: No Pertinent History Musculoskeletal: No Pertinent History Male Surgical History: No Pertinent History Other Surgical History: COLONOSCOPY-2013 - Social History Smoking Status: Never smoker How long have you smoked: unknown Exposure to second hand smoke: No Drug Use: none Patient Lives Alone: No - Nursing Vital Signs Nursing Vital Signs: Initial Vital Signs Temperature 97.7 F 04/15/17 13:15 Pulse Rate 88 04/15/17 13:15 Respiratory Rate 18 04/15/17 13:15 Blood Pressure 139/89 04/15/17 13:15 O2 Sat by Pulse Oximetry 97 04/15/17 13:15 Pain Scale Pain Intensity 9 - Nicky Coma Score Best Eye Response ([place]): (4) open spontaneously Best Verbal Response (Nicky): (5) oriented Best Motor Response ([place]): (6) obeys commands [place] Total: 15 - Physical Exam General Appearance: mild distress Head Injury: lacerations, tenderness, No active bleeding, No Coving[place]'s Sign Eye Exam: bilateral eye: PERRL, EOMI ENT Exam: airway nml, No evidence of ENT injury Neck Exam: supple, trachea midline, full range of motion, normal alignment, normal inspection Cardiovascular/Respiratory Exam: chest non-tender, normal breath sounds, heart sounds normal Gastrointestinal/Abdominal Exam: soft, non tender, no distention Back Exam: normal inspection, normal range of motion Extremity Exam: non-tender, normal range of motion, normal inspection Mental Status Exam: alert, oriented x 3, 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 Exam: normal hearing, normal speech, tongue midline, No facial droop, No facial paresthesias, No facial weakness, No hearing deficit (R), No hearing deficit (L) Coordination/Gait Exam: normal gait Motor/Sensory Exam: no motor deficit, no sensory deficit, no pronator drift Skin Exam: normal color, warm, dry, laceration (lateral to right jainism) SpO2 Interpretation: normal SpO2: 97 Oxygen Delivery: Room Air Procedures - Laceration/Wound Repair right temporal scalp Wound Location: Left Wound Length (cm): 10 Wound's Depth, Shape: superficial Wound Explored: clean Irrigated: Yes (Hibiclens) Hibiclens Prep: Yes Anesthesia: local, 1% Lidocaine Volume Anesthetic (ccs): 10 Wound Debrided: minimal Wound Repaired With: Dasha Number of Sutures: 16 Layer Closure?: No Sterile Dressing Applied?: Yes - Course Nursing assessment & vital signs reviewed: Yes - CT Exams Head CT Interpretation: Negative, Tele-radiologist Report Cervical Spine CT Interpretation: Negative, Other (reversal of lordosis. No acute.) Ordered Tests: Active Orders 24 hr Category Date Time Status Prepare for Sutures STAT Care 04/15/17 13:55 Active Sutures STAT Care 04/15/17 13:55 Active Wound Care STAT Care 04/15/17 13:55 Active CERVICAL SPINE WO CONTRAST [CT] Stat Exams 04/15/17 13:15 Ordered HEAD WITHOUT CONTRAST [CT] Stat Exams 04/15/17 13:14 Ordered Medication Summary Discontinued Medications Generic Name Dose Route Start Last Admin Trade Name Freq PRN Reason Stop Dose Admin Hydrocodone Bitart/Acetaminophen 1 tab 04/15/17 14:11 [place] 5/325 Mg PO 04/15/17 14:12 STAT ONE Bacitracin 0.9 gm 04/15/17 13:55 04/15/17 14:04 Baciguent Packet TP 04/15/17 13:56 0.9 gm STAT ONE Administration Bacitracin Confirm 04/15/17 13:58 Baciguent Packet Administered 04/15/17 13:59 Dose 1 gm .ROUTE .STK-MED ONE Diphtheria/Tetanus/Acell Pertussis 0.5 ml 04/15/17 13:14 04/15/17 14:04 Adacel Vial IM 04/15/17 13:15 0.5 ml .ONCE ONE Administration Diphtheria/Tetanus/Acell Pertussis Confirm 04/15/17 13:58 Adacel Vial Administered 04/15/17 13:59 Dose 0.5 ml IM .STK-MED ONE Lidocaine HCl 5 ml 04/15/17 13:55 04/15/17 14:05 Xylocaine 1% Hcl 20 Ml Mdv IJ 04/15/17 13:56 5 ml STAT ONE Administration Lidocaine HCl Confirm 04/15/17 13:58 Xylocaine 1% Hcl 20 Ml Mdv Administered 04/15/17 13:59 Dose 5 ml .ROUTE .STK-MED ONE - Progress Progress: improved Will see patient in: office (6 days for staple removal per PCP) Counseled pt/family regarding: diagnosis, need for follow-up, rad results - Departure Time of Disposition: 13:15 Departure Disposition: Home Clinical Impression: Head injury due to trauma Scalp laceration Qualifiers: Encounter type: initial encounter Qualified Code(s): S01.01XA - Laceration without foreign body of scalp, initial encounter Condition: Stable Critical Care Time: No
[2017-04-15 14:36] VITALS: BP 120/82; PULSE 80
== END 2017-04-15 14:35 | disposition home or self-care (01) ==
LOC: ED 13:47
PROC: 0HQ0XZZ Repair Scalp Skin, External Approach (ICD-10-PCS; principal; 2017-04-15)
DX: S01.01XA Laceration without foreign body of scalp, initial encounter (principal); W01.198A Fall on same level from slipping, tripping and stumbling with subsequent striking against other object, initial encounter; R42 Dizziness and giddiness
CPT/HCPCS: 12004; 70450; 72125; 90471; 90715; 99284; A9270-GY

== ENCOUNTER 2017-11-08 15:26 | Observation (INO) | payer OTHER ==
[2017-11-08 16:37] LABS: Hemoglobin 7.4 gm/dl (12.5-18.0); Mean Cell Volume 69.1 fl (78-100); Mean Corpuscular Hemoglobin 18.9 pg (26-32); Mean Corpuscular Hgb Concent. 27.4 g/dl (32-36); Mean Platelet Volume 11.1 fl (6-9.5); Platelet Count 211 K/mm3 (150-450); Red Blood Count 3.91 M/mm3 (4.1-5.6); Red Cell Distribution Width 18.9 % (11.5-14.0); White Blood Count 4.6 K/mm3 (4.0-10.5)
[2017-11-08 17:04] LABS: ALBUMIN 4.6 g/dL (3.5-5.0); ALKALINE PHOSPHATASE 76 U/L (38-126); ANION GAP 16.6 MEQ/L (5-15); BLOOD UREA NITROGEN 8 mg/dL (9-20); CHLORIDE 108 mmol/L (98-107); Calcium 9.4 mg/dL (8.4-10.2); Carbon Dioxide 22 mmol/L (22-30); Creatinine 1 0.84 mg/dL (0.66-1.25); Glucose 88 mg/dL (74-106); SGOT/AST 22 U/L (17-59); SGPT/ALT 15 U/L (0-50); SODIUM 143 mmol/L (137-145); Total Protein 7.3 g/dL (6.3-8.2)
[2017-11-08 17:42] LABS: ABO TYPING A; Antibody Screen NEGATIVE (NEGATIVE); RH TYPING POSITIVE
[2017-11-08] MEDS: Sodium Chloride 0.9% 500 ML 500 ML IV PRN ×2 (18:15→21:10)
[2017-11-08 18:53] LABS: Slide Review YES
--- NOTE | 2017-11-08 19:33 | PCM.HP ---
History of Present Illness - Chief Complaint Chief Complaint: anemia History of Present Illness: is a 32 year old male pt who saw Joann Botello yesterday complaining of fatigue and shortness of breath. He was found to have a hemoglobin of 7.3 so was asked to come in today for a blood transfusion. He has a history of anemia with transfusion of 4 units PRBC; in 2014 he had bleeding rectally with a hemoglobin of 5.5. On colonoscopy he was found to have hemorrhoids and he did have hemorrhoidectomy; he was told he would have to have "the other one" fixed in a few years. Colonoscopy done at [facility], he can't remember who did it. He has not been bleeding for several weeks but before that he did have an increase in rectal bleeding. He had vomiting and diarrhea in the past few weeks that has resolved. Denies abdominal pain. Denies tarry stool. Pt also has hx depression and anxiety; denies suicidal ideation. He notes that he is getting a divorce and has not been taking his medicine faithfully. Iron is on his home medicine list. Admits to 1 PPD tobacco and some alcohol (not daily). - Review of Systems Constitutional: Fatigue Respiratory: Short Of Breath Skin: Rash (bilat medial thighs x 1d, itchy) Psychological: Anxiety, Depression, No Suicidal Ideations Medications & Allergies Home Medications: Home Medication List Multivitamin [Multi-Vitamin Daily] 1 each PO DAILY #30 tablet 12/31/16 [Rx Confirmed 11/08/17] Buspirone HCl [Buspar] 10 mg PO BID 04/15/17 [History Confirmed 11/08/17] Fluoxetine HCl 20 mg [Prozac 20 MG] 20 mg PO DAILY 04/15/17 [History Confirmed 11/08/17] Ferrous Sulfate 325 mg [Feosol 325 mg] 325 mg PO DAILY 11/08/17 [History Confirmed 11/08/17] Allergies/Adverse Reactions: Allergies Allergy/AdvReac Type Severity Reaction Status Date / Time No Known Drug Allergies Allergy Verified 04/15/17 13:17 - Past Medical History Past Medical History: Yes Neurological History: No Pertinent History ENT History: No Pertinent History Cardiac History: No Pertinent History Respiratory History: No Pertinent History Endocrine Medical History: No Pertinent History Musculoskelatal History: No Pertinent History GI Medical History: Hemorrhoids History: No Pertinent History Pyscho-Social History: No Pertinent History Male Reproductive Disorders: No Pertinent History Comment: ANEMIA. - Past Surgical History Past Surgical History: Yes Neuro Surgical History: No Pertinent History Cardiac History: No Pertinent History Respiratory Surgery: No Pertinent History GI Surgical History: Cholecystectomy Genitourinary Surgical Hx: No Pertinent History Musculskeletal Surgical Hx: No Pertinent History Male Surgical History: No Pertinent History Other Surgical History: COLONOSCOPY-2013 - Social History Smoking Status: Current every day smoker How long have you smoked: unknown Exposure to second hand smoke: No Alcohol: Rarely Drug Use: none - Physical Exam Vital Signs: Vital Signs - 24 hr Temp Pulse Resp BP Pulse Ox 11/08/17 15:56 98 F 83 18 118/59 99 General Appearance: no apparent distress, alert Neurologic Exam: oriented x 3, cooperative Eye Exam: eyes nml inspection Ears, Nose, Throat Exam: moist mucous membranes Neck Exam: normal inspection, non-tender, supple, No lymphadenopathy Respiratory Exam: normal breath sounds, lungs clear, No crackles/rales, No rhonchi, No wheezing Cardiovascular Exam: regular rate/rhythm, normal heart sounds, No murmur Gastrointestinal/Abdomen Exam: soft, normal bowel sounds, No tenderness, No distention, No mass, No guarding, No rebound Back Exam: normal inspection, No rash Extremity Exam: normal inspection, other (non erythematous slightly rough patches of skin, indistinct, on medial proximal thighs bilat), No pedal edema, No swelling Results - Labs Lab/Micro Results: Lab Results-Last 24 Hours 11/08/17 11/08/17 11/08/17 Range/Units 16:00 16:00 16:31 WBC 4.6 (4.0-10.5) K/mm3 RBC 3.91 L (4.1-5.6) M/mm3 Hgb 7.4 L (12.5-18.0) gm/dl Hct 27.0 L (42-50) % MCV 69.1 L (78-100) fl MCH 18.9 L (26-32) pg MCHC 27.4 L (32-36) g/dl RDW 18.9 H (11.5-14.0) % Plt Count 211 (150-450) K/mm3 MPV 11.1 H (6-9.5) fl Sodium (137-145) mmol/L Potassium (3.5-5.1) mmol/L Chloride (98-107) mmol/L Carbon Dioxide (22-30) mmol/L Anion Gap (5-15) MEQ/L BUN (9-20) mg/dL Creatinine (0.66-1.25) mg/dL Estimated GFR ML/MIN Glucose (74-106) mg/dL Calcium (8.4-10.2) mg/dL Total Bilirubin (0.2-1.3) mg/dL AST (17-59) U/L ALT (0-50) U/L Alkaline Phosphatase (38-126) U/L Serum Total Protein (6.3-8.2) g/dL Albumin (3.5-5.0) g/dL Slides for Path Review YES ABO Group A Rh Factor POSITIVE Antibody Screen NEGATIVE (NEGATIVE) Crossmatch COMPATIBLE COMPATIBLE (COMPATIBLE) 11/08/17 Range/Units 16:31 WBC (4.0-10.5) K/mm3 RBC (4.1-5.6) M/mm3 Hgb (12.5-18.0) gm/dl Hct (42-50) % MCV (78-100) fl MCH (26-32) pg MCHC (32-36) g/dl RDW (11.5-14.0) % Plt Count (150-450) K/mm3 MPV (6-9.5) fl Sodium 143 (137-145) mmol/L Potassium 4.0 (3.5-5.1) mmol/L Chloride 108 H (98-107) mmol/L Carbon Dioxide 22 (22-30) mmol/L Anion Gap 16.6 H (5-15) MEQ/L BUN 8 L (9-20) mg/dL Creatinine 0.84 (0.66-1.25) mg/dL Estimated GFR > 60 ML/MIN Glucose 88 (74-106) mg/dL Calcium 9.4 (8.4-10.2) mg/dL Total Bilirubin 0.20 (0.2-1.3) mg/dL AST 22 (17-59) U/L ALT 15 (0-50) U/L Alkaline Phosphatase 76 (38-126) U/L Serum Total Protein 7.3 (6.3-8.2) g/dL Albumin 4.6 (3.5-5.0) g/dL Slides for Path Review ABO Group Rh Factor Antibody Screen (NEGATIVE) Crossmatch (COMPATIBLE) - Other Procedures and Tests Respiratory Therapy 11/08/17 16:14 Smoking Cessation Education ONCE Assessment/Plan (1) Anemia due to blood loss Current Visit: No Status: Acute Assessment & Plan: Transfuse [address] Mcginnis to discuss timing of EGD/colonoscopy with him tomorrow. Will request records of previous colonoscopy at [facility]. Code(s): D50.0 - IRON DEFICIENCY ANEMIA SECONDARY TO BLOOD LOSS (CHRONIC) (2) Tobacco abuse Current Visit: Yes Status: Acute Code(s): Z72.0 - TOBACCO USE (3) Eczema Current Visit: Yes Status: Acute Assessment & Plan: steroid cream Code(s): L30.9 - DERMATITIS, UNSPECIFIED
[2017-11-08] MEDS ORDERED: BUSPAR 5 MG PO ONE (22:00)
[2017-11-08] MEDS ORDERED: Nicoderm CQ 21 MG TOP SCH (22:30)
[2017-11-09 01:45] LABS: Hematocrit 31.5 % (42-50); Hemoglobin 9.1 gm/dl (12.5-18.0)
[2017-11-09 08:05] VITALS: BP 113/59; PULSE 65; O2SAT 98
[2017-11-09 08:16] LABS: Appearance HAZY (CLEAR); Bilirubin NEGATIVE (NEGATIVE); Blood NEGATIVE Ery/ul (0-5); Glucose NEGATIVE (NEGATIVE); Ketones NEGATIVE (NEGATIVE); Leukocyte Esterase NEGATIVE (NEGATIVE); Nitrite NEGATIVE (NEGATIVE); Protein,Urine Dip NEGATIVE (Negative); Urobilinogen NORMAL mg/dL (0-1)
--- NOTE | 2017-11-09 08:47 | PCM.DCORD ---
- Discharge Discharge Date: 11/09/17 Disposition: Home, Self-Care Condition: Stable Prescriptions: Continue Multivitamin [Multi-Vitamin Daily] 1 each PO DAILY #30 tablet Fluoxetine HCl 20 mg [Prozac 20 MG] 20 mg PO DAILY Buspirone HCl [Buspar] 10 mg PO BID Ferrous Sulfate 325 mg [Feosol 325 mg] 325 mg PO DAILY Follow up with: MARTI RAGLAND [Primary Care Provider] - 1 Week
[2017-11-09] MEDS ORDERED: Prozac 20 MG PO SCH (10:00)
[2017-11-09] MEDS ORDERED: BETAMETHASONE DIPROPIONATE TOP SCH (10:00)
[2017-11-09] MEDS ORDERED: BUSPAR 5 MG PO SCH (10:00)
[2017-11-09] MEDS ORDERED: THERAGRAN MULTIVITAMIN PO SCH (10:00)
[2017-11-09] MEDS ORDERED: FEOSOL 325 MG PO SCH (10:00)
[2017-11-09] MEDS ORDERED: NON-FORMULARY ITEM (Multivitamin [Multi-Vitamin Daily] 1 EACH) PO SCH (10:00)
[2017-11-09] MEDS ORDERED: FLUCELVAX QUAD 2017-2018 SYR IM ONE (10:10)
--- NOTE | 2017-11-13 08:07 | SSS ---
DISCHARGE DIAGNOSES: 1) IRON DEFICIENCY ANEMIA. 2) HISTORY OF RECTAL BLEEDING. 3) NEAR SYNCOPAL EPISODES. HISTORY: The patient is a 32 year-old white male patient who has history of having previous diagnosis of anemia. He said in 2016 he had issues with rectal bleeding. He had a CT scan done at [facility] which revealed some abnormality which led to colonoscopy which he reports was essentially normal. He reports he has been having problems with intermittent rectal bleeding since that time. He had a hemorrhoidectomy performed by Dr. Pedraza but he reports there were still some tissue stuck behind which Dr. Pedraza thought might need to be removed again. Indeed since that time he was considered to have some intermittent rectal bleeding. He has had two near syncopal episodes recently and was evaluated and found to have hemoglobin of less than 8. He was brought into the hospital for blood transfusion. PAST MEDICAL HISTORY: The patient otherwise is a healthy young man currently with no medical problems otherwise. MEDICATIONS: He is on no medication including iron. ALLERGIES: NKDA. PHYSICAL EXAMINATION: Revealed a well nourished, well developed 32 year-old white male patient in no obvious distress. His vital signs presently temperature 97.9F, pulse 50, respiratory rate 14, blood pressure 98/64. O2 saturation 95% on room air. HEENT: Normocephalic, atraumatic. Pupils equal round reactive to light. Extraocular movements intact. Oropharynx is pink and moist. NECK: Supple without lymphadenopathy, thyromegaly or JVD. CHEST: Clear to auscultation. HEART: Regular rate and rhythm without murmurs, rubs or gallops. ABDOMEN: Soft. No palpable masses. EXTREMITIES: Without clubbing, cyanosis or edema. NEUROLOGIC: The patient is alert and oriented x3. RECTAL: Revealed no significant obvious pathology. LAB DATA AND TESTS: Revealed a hemoccult test which was negative. His hemoglobin was noted to be 7.3 with hypochromic, microcytic indices. His white blood cell count was 4,800. His PLT count was 216,000. His metabolic panel showed BUN 8, creatinine 0.84, glucose 88. Electrolytes were normal. Liver enzymes were normal. HOSPITAL COURSE: The patient was admitted to the medicine [place]. He was typed and cross matched for blood and after transfusion his hemoglobin was up to 9.1. By the morning of 11/09/2017, he was looking good having no problems at this time. He was felt to be ready for discharge home again. The patient will have follow up with Dr. Razo in the office. He has had previous apparent colonoscopy performed at which time a hyperplastic polyp was removed. Apparently this was done by Dr. Gallo. They did apparently reach the terminal ileum by the report of colonoscopy from 05/04/2014. We will attempt to obtain the CT scan report for evaluation from [facility]. In the meantime the patient was sent home on iron [address] Razo will discuss with the patient possible surgical consultation for hemorrhoidectomy to hopefully fix the site of bleeding. We are happy to provide endoscopic evaluation should they decide it is needed on an outpatient basis.
== END 2017-11-09 10:15 | disposition home or self-care (01) ==
LOC: MED SURG 15:44
PROVIDERS: ADMIT Family Medicine; ATTEND Family Medicine
DX: D50.0 Iron deficiency anemia secondary to blood loss (chronic) (principal); K62.5 Hemorrhage of anus and rectum; R55 Syncope and collapse; L30.9 Dermatitis, unspecified; Z72.0 Tobacco use
CPT/HCPCS: 36415; 36430; 80053; 81002; 82272; 85014; 85018; 85027; 86850; 86900; 86901; 86922; 93268; G0008; G0378; P9016; 90682; A9270-GY

== ENCOUNTER 2018-09-13 06:45 | Emergency (ER) | payer MEDICAID, OTHER, SELFPAY ==
[2018-09-13] MEDS ORDERED: Marcaine 0.5%/Epinephrine 10 ML ONE (07:17)
--- NOTE | 2018-09-13 07:34 | ERPHSYRPT ---
- History of Present Illness Time Seen by Provider: 09/13/18 07:00 Historian: patient Exam Limitations: no limitations Patient Subjective Stated Complaint: pt is alert and oriented. pt is ambulatory. pt comes in with c/o rectal pain. pt states he has a large hemrrhoid. pt states he's had a history of hemmrhoids and bleeding associated with them. Triage Nursing Assessment: see above Physician History: 33 y/o white male with chronic h/o int and ext hemorrhoids. he underwent a single internal hemorrhoidectomy approx 2 years ago. he was supposed to go back to surgeon to deal with a second one but did not. pt has a bleeding internal hemorrhoid and a painful external hemorrhoidectomy. present for a few days. he has to push in the internal hemorrhoid often. Timing/Duration: day(s) (a few days), worse Activities at Onset: none Quality: aching, throbbing Abdominal Pain Onset Location: other (perianal) Pain Radiation: no radiation Severity of Pain-Max: moderate Severity of Pain-Current: moderate Modifying Factors: Improves With: nothing Associated Symptoms: other (bleeding hemorrhoids) Previous symptoms: same symptoms as today Allergies/Adverse Reactions: No Known Drug Allergies Allergy (Verified 04/15/17 13:17) Home Medications: Ferrous Sulfate 325 mg [Feosol 325 mg] 325 mg PO DAILY 11/08/17 [History] Hx Tetanus, Diphtheria Vaccination/Date Given: Yes Hx Influenza Vaccination/Date Given: No Hx Pneumococcal Vaccination/Date Given: No Immunizations Up to Date: Yes - Review of Systems Constitutional: No Symptoms Eyes: No Symptoms Ears, Nose, & Throat: No Symptoms Respiratory: No Symptoms Cardiac: No Symptoms Abdominal/Gastrointestinal: Other (perianal pain and bleeding), No Abdominal Pain, No Nausea, No Vomiting Genitourinary Symptoms: No Symptoms Musculoskeletal: No Symptoms Skin: No Symptoms Neurological: No Symptoms Psychological: No Symptoms Endocrine: No Symptoms Hematologic/Lymphatic: No Symptoms Immunological/Allergic: No Symptoms All Other Systems: Reviewed and Negative - Past Medical History Pertinent Past Medical History: Yes Neurological History: No Pertinent History ENT History: No Pertinent History Cardiac History: No Pertinent History Respiratory History: No Pertinent History Endocrine Medical History: No Pertinent History Musculoskeletal History: No Pertinent History GI Medical History: Hemorrhoids History: No Pertinent History Psycho-Social History: No Pertinent History Male Reproductive Disorders: No Pertinent History Other Medical History: ANEMIA. - Past Surgical History Past Surgical History: Yes Neuro Surgical History: No Pertinent History Cardiac: No Pertinent History Respiratory: No Pertinent History Gastrointestinal: Cholecystectomy, Hemorrhoidectomy Genitourinary: No Pertinent History Musculoskeletal: No Pertinent History Male Surgical History: No Pertinent History Other Surgical History: COLONOSCOPY-2013 - Social History Smoking Status: Current every day smoker How long have you smoked: 16 years Exposure to second hand smoke: No Drug Use: marijuana Patient Lives Alone: No - Nursing Vital Signs Nursing Vital Signs: Initial Vital Signs Pulse Rate 88 09/13/18 06:53 Respiratory Rate 16 09/13/18 06:53 Blood Pressure 131/77 09/13/18 06:53 O2 Sat by Pulse Oximetry 100 09/13/18 06:53 Pain Scale Pain Intensity 10 - Physical Exam General Appearance: moderate distress, alert, anxiety Eye Exam: PERRL/EOMI, eyes nml inspection Ears, Nose, Throat Exam: normal ENT inspection, moist mucous membranes Neck Exam: normal inspection, non-tender, supple, full range of motion Respiratory Exam: normal breath sounds, lungs clear, airway intact, No chest tenderness, No respiratory distress, No accessory muscle use, No rhonchi, No wheezing, No stridor Cardiovascular Exam: regular rate/rhythm, normal heart sounds, normal peripheral pulses Gastrointestinal/Abdomen Exam: soft, normal bowel sounds, No tenderness, No guarding, No rebound Rectal Exam: normal rectal tone, hemorrhoids (both internal(bleeding and reducible) and external(swollen and painful)), tenderness Back Exam: normal inspection, normal range of motion, No CVA tenderness, No vertebral tenderness Extremity Exam: normal inspection, normal range of motion, pelvis stable Neurologic Exam: alert, oriented x 3, cooperative, box shook patcher II-XII nml as tested Skin Exam: normal color, warm, dry Lymphatic Exam: No adenopathy SpO2 Interpretation: normal SpO2: 100 O2 Delivery: Room Air Procedures - Additional Procedures Progress: left (3 oclock) external hemorrhoidectomy with evacuation of blood clot. perfomed with a #15 blade. 6ml 0.5% marcaine with epi used for local anesthesia. area prepped with betadine. no complications. cynthia well - Course Nursing assessment & vital signs reviewed: Yes Ordered Tests: Medication Summary Discontinued Medications Generic Name Dose Route Start Last Admin Trade Name Freq PRN Reason Stop Dose Admin Bupivacaine HCl/Epinephrine Bitart Confirm 09/13/18 07:17 Marcaine 0.5%/Epinephrine 10 Ml Administered 09/13/18 07:18 Dose 10 ml .ROUTE .STK-MED ONE - Progress Progress: improved, pain not gone completely, re-examined Counseled pt/family regarding: diagnosis, need for follow-up - Departure Time of Disposition: 07:38 Departure Disposition: Home Clinical Impression: Thrombosed external hemorrhoid, Internal bleeding hemorrhoids Condition: Stable Critical Care Time: No Referrals: MARTI RAGLAND [Primary Care Provider] - Additional Instructions: sitz bath 3 times daily with warm water and epsom salts. cover site after each sitz bath. follow up with surgeon for further management. if symptoms worsen return to ED here or at [facility] where your surgeon is. use stool softeners, drink plenty of fluid and be active. Prescriptions: Hydrocodone/APAP 5/325 [[place] 5/325 mg] 1 each PO Q12H PRN PRN #6 tablet MDD 2 PRN Reason: Pain
[2018-09-13 08:25] VITALS: BP 123/68; PULSE 100; O2SAT 97
== END 2018-09-13 08:32 | disposition home or self-care (01) ==
LOC: ED 06:45
DX: K64.5 Perianal venous thrombosis (principal); K64.8 Other hemorrhoids
CPT/HCPCS: 96372; 99283

== ENCOUNTER 2018-09-13 20:04 | Emergency (ER) | payer MEDICAID, OTHER ==
[2018-09-13] MEDS ORDERED: Hydromorphone 1 mg/ml Ampule IV ONE (20:33)
[2018-09-13] MEDS ORDERED: Zofran 4 MG/2 ML VIAL IV ONE (20:33)
[2018-09-13] MEDS ORDERED: Sodium Chloride 0.9% 1000 ML 1,000 ML IV STA (20:33)
--- NOTE | 2018-09-13 20:47 | ERPHSYRPT ---
- History of Present Illness Time Seen by Provider: 09/13/18 20:20 Historian: patient Exam Limitations: no limitations Patient Subjective Stated Complaint: pt states since having hemorrhoid cut this am, he has been having increased pain and swelling Triage Nursing Assessment: pt awake and alert, answers questions approp. pt ambultory with slow steadygait noted. respirations nonlabored with lungs cta. skin pink warm and dry. external hemorrhoid noted. Physician History: 33 y/o white male presented to ED this am with both a thrombosed ext hemorrhoid and reducible internal hemorrhoid. pt had blood clot evacuated from ext hemorrhoid this am. pt went home vss and has been using sitz baths and ice pack. bleeding has noticeably decreased. rectal pain is better than when he first arrived this morning but still present despite above tx and norco. pt has had chronic anemia secondary to chronic rectal bleeding over several years. pt was suppose to return to dr. sánchez (general surgeon) for surgical intervention for tx of second int hemorrhoid but he never returned. pt has had blood transfusion for this issue in 12/01. pt hemaglobin generally runs between 9 and 13 between 01/02 and 11/03. pt arrives with pb 118/63 and hr in 80s. Timing/Duration: today Activities at Onset: none Quality: stabbing, throbbing Abdominal Pain Onset Location: other (perianal) Pain Radiation: no radiation Severity of Pain-Max: moderate Severity of Pain-Current: moderate Modifying Factors: Improves With: analgesics (has helped some but not completely ) Associated Symptoms: No diarrhea, No loss of appetite, No nausea, No vomiting Previous symptoms: same symptoms as today Allergies/Adverse Reactions: No Known Drug Allergies Allergy (Verified 09/13/18 20:25) Home Medications: Ferrous Sulfate 325 mg [Feosol 325 mg] 325 mg PO DAILY 11/08/17 [History] Hx Tetanus, Diphtheria Vaccination/Date Given: Yes Hx Influenza Vaccination/Date Given: No Hx Pneumococcal Vaccination/Date Given: No Immunizations Up to Date: Yes - Review of Systems Constitutional: No Symptoms Eyes: No Symptoms Ears, Nose, & Throat: No Symptoms Respiratory: No Symptoms Cardiac: No Symptoms Abdominal/Gastrointestinal: Other (some post op bleeding; mod perianal pain and swelling), No Abdominal Pain, No Nausea, No Vomiting Genitourinary Symptoms: No Symptoms Musculoskeletal: No Symptoms Skin: No Symptoms Neurological: No Symptoms Psychological: No Symptoms Endocrine: No Symptoms Hematologic/Lymphatic: No Symptoms Immunological/Allergic: No Symptoms All Other Systems: Reviewed and Negative - Past Medical History Pertinent Past Medical History: Yes Neurological History: No Pertinent History ENT History: No Pertinent History Cardiac History: No Pertinent History Respiratory History: No Pertinent History Endocrine Medical History: No Pertinent History Musculoskeletal History: No Pertinent History GI Medical History: Hemorrhoids History: No Pertinent History Psycho-Social History: No Pertinent History Male Reproductive Disorders: No Pertinent History Other Medical History: ANEMIA. - Past Surgical History Past Surgical History: Yes Neuro Surgical History: No Pertinent History Cardiac: No Pertinent History Respiratory: No Pertinent History Gastrointestinal: Cholecystectomy, Hemorrhoidectomy Genitourinary: No Pertinent History Musculoskeletal: No Pertinent History Male Surgical History: No Pertinent History Other Surgical History: COLONOSCOPY-2013 - Social History Smoking Status: Current every day smoker How long have you smoked: unknown Exposure to second hand smoke: Yes Drug Use: marijuana Patient Lives Alone: No - Nursing Vital Signs Nursing Vital Signs: Initial Vital Signs Pulse Rate 91 H 09/13/18 20:17 Respiratory Rate 18 09/13/18 20:17 Blood Pressure 118/63 09/13/18 20:17 O2 Sat by Pulse Oximetry 100 09/13/18 20:17 Pain Scale Pain Intensity 9 - Physical Exam General Appearance: mild distress, alert, anxiety Eye Exam: PERRL/EOMI Ears, Nose, Throat Exam: normal ENT inspection, moist mucous membranes Neck Exam: normal inspection, non-tender, supple Respiratory Exam: normal breath sounds, lungs clear, airway intact, No chest tenderness, No respiratory distress, No accessory muscle use, No rhonchi, No wheezing, No stridor Cardiovascular Exam: regular rate/rhythm, normal heart sounds, normal peripheral pulses Gastrointestinal/Abdomen Exam: soft, normal bowel sounds, No tenderness, No guarding, No rebound Rectal Exam: hemorrhoids (swollen red ext hemmorhoid surgical site; internal hemorrhoid digitally reducible. comes out with valsalva.), tenderness, other Extremity Exam: normal inspection Neurologic Exam: alert, oriented x 3, cooperative, manager talent II-XII nml as tested Skin Exam: normal color, warm, dry Lymphatic Exam: No adenopathy SpO2 Interpretation: normal SpO2: 100 O2 Delivery: Room Air - Course Nursing assessment & vital signs reviewed: Yes Ordered Tests: Active Orders 24 hr Category Date Time Status IV Insertion STAT Care 09/13/18 20:33 Active BMP Stat Lab 09/13/18 20:56 Completed CBC W DIFF Stat Lab 09/13/18 20:56 Completed Medication Summary Discontinued Medications Generic Name Dose Route Start Last Admin Trade Name Nirq PRN Reason Stop Dose Admin Hydromorphone HCl 1 mg 09/13/18 20:33 09/13/18 21:00 Hydromorphone 1 Mg/Ml Ampule IV 09/13/18 20:34 1 mg STAT ONE Administration Hydromorphone HCl Confirm 09/13/18 20:56 Hydromorphone 1 Mg/Ml Ampule Administered 09/13/18 20:57 Dose 1 mg .ROUTE .STK-MED ONE Sodium Chloride 1,000 mls @ 999 mls/hr 09/13/18 20:33 09/13/18 21:00 Sodium Chloride 0.9% 1000 Ml IV 09/13/18 21:33 999 mls/hr .Q1H1M STA Administration Sodium Chloride Confirm 09/13/18 20:56 Sodium Chloride 0.9% 1000 Ml Administered 09/13/18 20:57 Dose 1,000 mls @ ud .ROUTE .STK-MED ONE Ondansetron HCl 4 mg 09/13/18 20:33 09/13/18 21:00 Zofran 4 Mg/2 Ml Vial IV 09/13/18 20:34 4 mg STAT ONE Administration Ondansetron HCl Confirm 09/13/18 20:56 Zofran 4 Mg/2 Ml Vial Administered 09/13/18 20:57 Dose 4 mg .ROUTE .STK-MED ONE Lab/Rad Data: Laboratory Result Diagrams 09/13/18 20:56 09/13/18 20:56 Laboratory Results 09/13/18 09/13/18 Range/Units 20:56 20:56 WBC 7.6 (4.0-10.5) K/mm3 RBC 3.47 L (4.1-5.6) M/mm3 Hgb 8.0 L (12.5-18.0) gm/dl Hct 27.5 L (42-50) % MCV 79.3 (78-100) fl MCH 23.0 L (26-32) pg MCHC 29.1 L (32-36) g/dl RDW 19.6 H (11.5-14.0) % Plt Count 266 (150-450) K/mm3 MPV 11.7 H (6-9.5) fl Gran % 67.3 H (36.0-66.0) % Eos # (Auto) 0.06 (0-0.5) Absolute Lymphs (auto) 1.36 (1.0-4.6) Absolute Monos (auto) 1.04 (0.0-1.3) Lymphocytes % 17.8 L (24.0-44.0) % Monocytes % 13.6 H (0.0-12.0) % Eosinophils % 0.8 (0.00-5.0) % Basophils % 0.5 (0.0-0.4) % Absolute Granulocytes 5.14 (1.4-6.9) Basophils # 0.04 (0-0.4) Sodium 137 (137-145) mmol/L Potassium 4.2 (3.5-5.1) mmol/L Chloride 100 (98-107) mmol/L Carbon Dioxide 29 (22-30) mmol/L Anion Gap 12.8 (5-15) MEQ/L BUN 16 (9-20) mg/dL Creatinine 0.95 (0.66-1.25) mg/dL Estimated GFR > 60.0 ML/MIN Glucose 96 (74-106) mg/dL Calcium 9.1 (8.4-10.2) mg/dL - Progress Progress: improved, pain not gone completely, re-examined Progress Note: 09/13/18 21:54 re examined. no active bleeding. reviewed pt hx, condition, labs with dr. paxton sánchez (general surgeon). i reviewed with pt the 2 options for him. admit for pain control, monitor hgb and surgical c/s or go home, continue sitz bath, ice pack and norco and follow up with dr. thompson in surgery office on saturday09/15/18. pt states his pain is better now and no bleeding. therefore he wants to go home. Counseled pt/family regarding: lab results, diagnosis, need for follow-up - Departure Time of Disposition: 21:58 Departure Disposition: Home Clinical Impression: Rectal pain, Internal and external bleeding hemorrhoids, Anemia Condition: Stable Critical Care Time: No Referrals: MARTI RAGLAND [Primary Care Provider] - Additional Instructions: continue sitz bath and ice pack as before. return to ED if symptoms worsen. follow up with dr. roman (general surgeon) in the [facility] first thing Saturday09/15/18 for further management
[2018-09-13] MEDS ORDERED: Sodium Chloride 0.9% 1000 ML 1,000 ML ONE (20:56)
[2018-09-13] MEDS ORDERED: Hydromorphone 1 mg/ml Ampule ONE (20:56)
[2018-09-13] MEDS ORDERED: Zofran 4 MG/2 ML VIAL ONE (20:56)
[2018-09-13 20:59] LABS: BASOPHIL % 0.5 % (0.0-0.4); Basophil (Absolute #) 0.04 (0-0.4); Eosinophil % 0.8 % (0.00-5.0); Eosinophil (Absolute #) 0.06 (0-0.5); Granulocyte Absolute (ANC) 5.14 (1.4-6.9); Granulocytes % 67.3 % (36.0-66.0); Hematocrit 27.5 % (42-50); Lymphocyte (Absolute #) 1.36 (1.0-4.6); Lymphocytes % 17.8 % (24.0-44.0); Mean Cell Volume 79.3 fl (78-100); Mean Corpuscular Hgb Concent. 29.1 g/dl (32-36); Mean Platelet Volume 11.7 fl (6-9.5); Monocyte (Absolute #) 1.04 (0.0-1.3); Monocytes % 13.6 % (0.0-12.0); Platelet Count 266 K/mm3 (150-450); Red Blood Count 3.47 M/mm3 (4.1-5.6); Red Cell Distribution Width 19.6 % (11.5-14.0); White Blood Count 7.6 K/mm3 (4.0-10.5)
[2018-09-13 21:12] LABS: ANION GAP 12.8 MEQ/L (5-15); BLOOD UREA NITROGEN 16 mg/dL (9-20); CHLORIDE 100 mmol/L (98-107); Calcium 9.1 mg/dL (8.4-10.2); Carbon Dioxide 29 mmol/L (22-30); Creatinine 1 0.95 mg/dL (0.66-1.25); Glucose 96 mg/dL (74-106); Potassium 4.2 mmol/L (3.5-5.1); SODIUM 137 mmol/L (137-145)
[2018-09-13 22:01] LABS: ABO TYPING A; Antibody Screen NEGATIVE (NEGATIVE); RH TYPING POSITIVE
[2018-09-13] MEDS ORDERED: KEFLEX 500 MG PO ONE (22:11)
[2018-09-13] MEDS ORDERED: KEFLEX 500 MG ONE (22:18)
[2018-09-13 22:27] VITALS: BP 94/60; PULSE 81; O2SAT 98
== END 2018-09-13 22:43 | disposition home or self-care (01) ==
LOC: ED 20:04
DX: K62.89 Other specified diseases of anus and rectum (principal); K64.8 Other hemorrhoids; K64.4 Residual hemorrhoidal skin tags; D64.9 Anemia, unspecified
CPT/HCPCS: 36000; 36415; 80048; 85025; 86850; 86900; 86901; 96360; 96372; 96374; 96375; 99283; 99284; J1170; J2405; A9270-GY

== ENCOUNTER 2018-09-15 05:56 | Observation (INO) | payer MEDICAID, OTHER ==
[2018-09-15] MEDS ORDERED: Zofran 4 MG/2 ML VIAL IV ONE (06:25)
[2018-09-15] MEDS ORDERED: Zofran 4 MG/2 ML VIAL ONE (06:28)
[2018-09-15] MEDS ORDERED: Sodium Chloride 0.9% 1000 ML 1,000 ML IV SCH ×2 (06:30→07:30)
--- NOTE | 2018-09-15 06:42 | ERPHSYRPT ---
- History of Present Illness Time Seen by Provider: 09/15/18 06:14 Source: patient Exam Limitations: clinical condition Patient Subjective Stated Complaint: pt here for pain and swelling from a hemorrhoids that was I&D on saturday, Triage Nursing Assessment: pt alert, resp easy, skin w/d. pt states having a small amt of bleeding after straining to go to bathroom Physician History: PATIENT WITH A HISTORY OF HEPATITIS, CHRONIC ANEMIA DUE TO CHRONIC RECTAL BLEEDING, INTERNAL AND EXTERNAL RECTAL HEMORRHOIDS, COMPLAINS OF INCREASING RECTAL PAIN FROM EXTERNAL HEMORRHOID. HAS MINIMAL RECTAL BLEEDING. HAS A HISTORY OF MULTIPLE TRANSFUSIONS FOR ANEMIA SECONDARY TO RECTAL BLEEDING. THIS IS HIS 3RD EMERGENCY ROOM VISIT IN 48 HOURS FOR RECTAL PAIN. HAD INCISION AND DRAINAGE OF THROMBOSED EXTERNAL HEMORRHOID ON DATE 09/13/2018. DENIES WEAKNESS, DIZZINESS, FEVER OR CHILLS. Timing/Duration: day(s) Severity: severe Associated Symptoms: other (RECTAL BLEEDING) Allergies/Adverse Reactions: No Known Drug Allergies Allergy (Verified 09/15/18 06:07) Home Medications: Ferrous Sulfate 325 mg [Feosol 325 mg] 325 mg PO DAILY 11/08/17 [History] Hx Tetanus, Diphtheria Vaccination/Date Given: Yes Hx Influenza Vaccination/Date Given: No Hx Pneumococcal Vaccination/Date Given: No Immunizations Up to Date: Yes - Review of Systems Constitutional: No Fever, No Chills Eyes: No Symptoms Ears, Nose, & Throat: No Symptoms Respiratory: No Symptoms, No Cough, No Dyspnea Cardiac: No Symptoms, No Chest Pain, No Edema, No Syncope Abdominal/Gastrointestinal: No Symptoms, Other (MARKED EXTERNAL HEMORRHOID PAIN WITH MINIMAL BLEEDING), No Abdominal Pain, No Nausea, No Vomiting, No Diarrhea Genitourinary Symptoms: No Symptoms, No Dysuria Musculoskeletal: No Symptoms, No Back Pain, No Neck Pain Skin: No Symptoms, No Rash Neurological: No Dizziness, No Focal Weakness, No Sensory Changes Psychological: No Symptoms Endocrine: No Symptoms Hematologic/Lymphatic: No Symptoms All Other Systems: Reviewed and Negative - Past Medical History Pertinent Past Medical History: Yes Neurological History: No Pertinent History ENT History: No Pertinent History Cardiac History: No Pertinent History Respiratory History: No Pertinent History Endocrine Medical History: No Pertinent History Musculoskeletal History: No Pertinent History GI Medical History: Hemorrhoids, Hepatitis History: No Pertinent History Psycho-Social History: No Pertinent History Male Reproductive Disorders: No Pertinent History Other Medical History: ANEMIA. - Past Surgical History Past Surgical History: Yes Neuro Surgical History: No Pertinent History Cardiac: No Pertinent History Respiratory: No Pertinent History Gastrointestinal: Cholecystectomy, Hemorrhoidectomy Genitourinary: No Pertinent History Musculoskeletal: No Pertinent History Male Surgical History: No Pertinent History Other Surgical History: COLONOSCOPY-2013 - Social History Smoking Status: Current every day smoker How long have you smoked: unknown Exposure to second hand smoke: Yes Drug Use: marijuana Patient Lives Alone: No - Nursing Vital Signs Nursing Vital Signs: Initial Vital Signs Temperature 98.4 F 09/15/18 06:03 Pulse Rate 85 09/15/18 06:03 Respiratory Rate 16 09/15/18 06:03 Blood Pressure 104/49 09/15/18 06:03 O2 Sat by Pulse Oximetry 100 09/15/18 06:03 Pain Scale Pain Intensity 9 - Physical Exam General Appearance: mild distress Eye Exam: PERRL/EOMI, eyes nml inspection Ears, Nose, Throat Exam: normal ENT inspection, TMs normal, pharynx normal, moist mucous membranes Neck Exam: normal inspection, non-tender, supple, full range of motion Respiratory Exam: normal breath sounds, lungs clear, No respiratory distress Cardiovascular Exam: regular rate/rhythm, normal heart sounds, normal peripheral pulses Male Genitalia Exam: normal genitalia Rectal Exam: hemorrhoids (MARKED EXTERNAL THROMBOSED HEMORRHOID 3CM X 4CM, NO ACTIVE HEMORRHAGE) Extremity Exam: normal inspection Neurologic Exam: alert, oriented x 3 SpO2: 100 Ordered Tests: Active Orders 24 hr Category Date Time Status Up With Assistance ROUTINE Activity 09/15/18 07:17 Ordered Call Admit Doctor for Orders ON ADMISSION Care 09/15/18 07:19 Ordered Code Status Order ROUTINE Care 09/15/18 07:17 Ordered IV Care Q6H Care 09/15/18 07:[address] in Observation ROUTINE Care 09/15/18 07:18 Ordered Vital Signs Q4H Care 09/15/18 07:17 Ordered Consult Surgery ROUTINE Cons 09/15/18 07:21 Ordered NPO Diet 09/15/18 07:19 Ordered BMP Stat Lab 09/15/18 06:40 Received CBC W DIFF Stat Lab 09/15/18 06:40 Completed PT INR [PROTIME WITH INR] Stat Lab 09/15/18 06:40 Completed Transfer Order Routine Transfer 09/15/18 Ordered Medication Summary Generic Name Dose Route Start Last Admin Trade Name Halima PRN Reason Stop Dose Admin Sodium Chloride 1,000 mls @ 250 mls/hr 09/15/18 06:30 09/15/18 06:21 Sodium Chloride 0.9% 1000 Ml IV 10/15/18 06:29 250 mls/hr .Q4H SASHA Administration Discontinued Medications Generic Name Dose Route Start Last Admin Trade Name Halima PRN Reason Stop Dose Admin Ondansetron HCl 4 mg 09/15/18 06:25 09/15/18 06:29 Zofran 4 Mg/2 Ml Vial IV 09/15/18 06:26 4 mg STAT ONE Administration Ondansetron HCl Confirm 09/15/18 06:28 Zofran 4 Mg/2 Ml Vial Administered 09/15/18 06:29 Dose 4 mg .ROUTE .STK-MED ONE Lab/Rad Data: Laboratory Result Diagrams 09/15/18 06:40 Laboratory Results 09/15/18 09/15/18 Range/Units 06:40 06:40 WBC 8.4 (4.0-10.5) K/mm3 RBC 3.34 L (4.1-5.6) M/mm3 Hgb 7.6 L (12.5-18.0) gm/dl Hct 26.7 L (42-50) % MCV 79.9 (78-100) fl MCH 22.7 L (26-32) pg MCHC 28.5 L (32-36) g/dl RDW 19.6 H (11.5-14.0) % Plt Count 243 (150-450) K/mm3 MPV 11.1 H (6-9.5) fl Gran % 67.3 H (36.0-66.0) % Eos # (Auto) 0.20 (0-0.5) Absolute Lymphs (auto) 1.57 (1.0-4.6) Absolute Monos (auto) 0.93 (0.0-1.3) Lymphocytes % 18.7 L (24.0-44.0) % Monocytes % 11.1 (0.0-12.0) % Eosinophils % 2.4 (0.00-5.0) % Basophils % 0.5 (0.0-0.4) % Absolute Granulocytes 5.65 (1.4-6.9) Basophils # 0.04 (0-0.4) PT 12.4 (8.83-12.87) SECONDS INR 1.07 (0.8-3.0) Slides for Path Review YES - Progress Progress: unchanged Progress Note: 09/15/18 06:46 IV NORMAL SALINE 250ML/HR, ZOFRAN 4MG, MORPHINE 4MG IV 09/15/18 07:00, HGB 7.6 THIS AM, HGB 8.0 ON 09/13/[address] Mcginnis (DISCUSSED WITH DR MCGINNIS AT 0710 FOR OBSERVATION.) - Departure Time of Disposition: 07:25 Departure Disposition: Observation Clinical Impression: INTRACTABLE RECTAL PAIN, ANEMIA, RECTAL HEMORRHOIDS Condition: Stable Critical Care Time: No Referrals: MARTI RGALAND [Primary Care Provider] -
[2018-09-15 06:56] LABS: BASOPHIL % 0.5 % (0.0-0.4); Basophil (Absolute #) 0.04 (0-0.4); Eosinophil % 2.4 % (0.00-5.0); Granulocyte Absolute (ANC) 5.65 (1.4-6.9); Granulocytes % 67.3 % (36.0-66.0); Hematocrit 26.7 % (42-50); Hemoglobin 7.6 gm/dl (12.5-18.0); Lymphocyte (Absolute #) 1.57 (1.0-4.6); Lymphocytes % 18.7 % (24.0-44.0); Mean Cell Volume 79.9 fl (78-100); Mean Corpuscular Hgb Concent. 28.5 g/dl (32-36); Mean Platelet Volume 11.1 fl (6-9.5); Monocyte (Absolute #) 0.93 (0.0-1.3); Monocytes % 11.1 % (0.0-12.0); Platelet Count 243 K/mm3 (150-450); Red Blood Count 3.34 M/mm3 (4.1-5.6); Red Cell Distribution Width 19.6 % (11.5-14.0); White Blood Count 8.4 K/mm3 (4.0-10.5)
[2018-09-15 06:57] LABS: Mean Corpuscular Hemoglobin 22.7 pg (26-32)
[2018-09-15 07:10] LABS: Slide Review 1 YES
[2018-09-15 07:13] LABS: INR 1.07 (0.8-3.0); PROTIME 12.4 SECONDS (8.83-12.87)
[2018-09-15 07:17] LABS: ANION GAP 11.2 MEQ/L (5-15); BLOOD UREA NITROGEN 14 mg/dL (9-20); CHLORIDE 105 mmol/L (98-107); Calcium 8.8 mg/dL (8.4-10.2); Carbon Dioxide 27 mmol/L (22-30); Creatinine 1 0.85 mg/dL (0.66-1.25); Glucose 95 mg/dL (74-106); Potassium 4.2 mmol/L (3.5-5.1); SODIUM 139 mmol/L (137-145)
[2018-09-15] MEDS ORDERED: Zofran 4 MG/2 ML VIAL IV PRN (07:17)
[2018-09-15 08:39] LABS: ABO TYPING A; Antibody Screen NEGATIVE (NEGATIVE); RH TYPING POSITIVE
[2018-09-15 09:03] LABS: ALBUMIN 3.9 g/dL (3.5-5.0); BILIRUBIN,TOTAL 0.2 mg/dL (0.2-1.3); Direct Bilirubin 0.2 mg/dL (0.0-0.4); Total Protein 6.4 g/dL (6.3-8.2)
[2018-09-15] MEDS: Colace 100 MG PO SCH ×2 (09:50→09:52)
[2018-09-15] MEDS: DILAUDID 2 MG INJECTION IV PRN ×4 (09:53→22:53)
[2018-09-15] MEDS ORDERED: FEOSOL 325 MG PO SCH (10:00)
--- NOTE | 2018-09-15 13:03 | HP ---
CHIEF COMPLAINT: Rectal bleeding and rectal pain. HISTORY OF PRESENT ILLNESS: The patient is a 33 year-old white male patient now on his third visit to the emergency room for hemorrhoids and hemorrhoidal bleeding. However this time the patient dropped his hemoglobin to less than 8. The patient has been lost to follow up over the past year or so as he has lost his insurance and normally is followed by Joann Botello at our office. The patient has previous medical history of cholecystectomy. He previously had hemorrhoidectomies performed with internal banding as well. He does tend to have a chronic anemia issue and cannot tell me what his hemoglobin was from before. The most recent one on the visit before this was 8 but as stated above he has dropped below 8 at this point in time. He does appear to be medically stable otherwise though. He is in moderate to severe pain due to hemorrhoids. PHYSICAL EXAMINATION: His vital signs were temperature 98.4F, pulse 85, respiratory rate 16, blood pressure 104/49. O2 saturation 100% on room air. HEENT: Normocephalic, atraumatic. Pupils equal round reactive to light. Extraocular movements intact. Oropharynx is pink and moist. NECK: Supple without lymphadenopathy, thyromegaly or JVD. CHEST: Clear to auscultation. HEART: Regular rate and rhythm without murmurs, rubs or gallops. ABDOMEN: Soft. No palpable masses. : Marked external thrombosed hemorrhoids. They were incised on the previous emergency room visit and there is just oozing present at this time. LAB DATA AND TESTS: Showed his hemoglobin 7.6, white blood cell count 8,400, PLT count 243,000. Metabolic panel is entirely normal. His liver enzymes however were not tested. His international normalized ratio was 1.07. ASSESSMENT: We will admit the patient for pain control and surgical consultation, transfusion of 2 units of packed red blood cells due to the patient's anemia of less than 8.
--- NOTE | 2018-09-15 13:49 | CONS ---
CONSULT DATE: 09/15/2018 This patient was seen for Dr. Pedraza who was receptionist for our group today. HISTORY: The patient is a 33 year-old gentleman who was referred to [facility] for rectal prolapse in the past who felt he needed his hemorrhoids out at that time per his [facility] surgeon. He had what sounds like some single hemorrhoid excised. The family or patient could not tell me the name of this surgeon apparently. He was told he had too much scar tissue. He said he had endoscopy in the past year or two and ruled out Crohn's. He did have I&D with thrombosis in the emergency room in the past couple of days. PAST MEDICAL HISTORY: Chronic anemia and history of hepatitis. Rectal bleeding. PAST SURGICAL HISTORY: Cholecystectomy. Hemorrhoid procedure in the past. MEDICATIONS: He has been on ferrous sulfate. ALLERGIES: NKDA. FAMILY HISTORY: Negative to this problem. SOCIAL HISTORY: No alcohol abuse. He has had hepatitis. He is a smoker. He uses marijuana. REVIEW OF SYSTEMS: Twelve systems reviewed. No chest pain or palpitations other systems negative or noncontributory as above and per preadmission questionnaire. PHYSICAL EXAMINATION: Temperature 98.4F, pulse 75, blood pressure 104/49. GENERAL: No acute distress. HEENT: Sclera nonicteric. NECK: No JVD. CHEST: Equal excursion, nonlabored breathing. CVS: Regular rate and rhythm. ABDOMEN: Nondistended. EXTREMITIES: No edema. RECTAL: Open swollen hemorrhoidal area rectal thrombosed external hemorrhoid, some drainage, no significant active bleeding. IMPRESSION: Chronic hemorrhoid disease. The patient has been seen in [place] in the past. He had recent I&D. He is having aches and pains which is as expected. No emergent surgical intervention necessary at this time. He is to continue sitz bath, high fiber diet and Metamucil Fiber to titrate soft bulky bowel movements. I discussed with the family the options of him following up with his surgeon in [place] as they are not sure who his surgeon was at the [facility]. Either way no emergent surgical intervention necessary at this point. He is to continue sitz bath often as his hemorrhoid is open and draining. As he has had anemia could consider endoscopy although they said he had endoscopy in the past year or two according to the family, could get those reports otherwise continue medical management at this point. This patient was seen for Dr. Pedraza who was receptionist for our group. I will let him know that the patient is here so he can follow up with his original surgeon or follow up back with his surgeon in [place] that he had seen in the past.
[2018-09-15] MEDS: NORCO 5/325 MG PO PRN (17:05)
[2018-09-15 17:09] LABS: Hematocrit 32.6 % (42-50); Hemoglobin 9.8 gm/dl (12.5-18.0)
[2018-09-15] MEDS: MORPHINE SULFATE 2 MG INJ IV PRN ×2 (18:35→23:50)
[2018-09-16] MEDS: DILAUDID 2 MG INJECTION IV PRN ×2 (02:59→07:52)
[2018-09-16] MEDS: MORPHINE SULFATE 2 MG INJ IV PRN (05:04)
[2018-09-16 06:21] LABS: BASOPHIL % 0.5 % (0.0-0.4); Basophil (Absolute #) 0.04 (0-0.4); Eosinophil % 3.1 % (0.00-5.0); Eosinophil (Absolute #) 0.24 (0-0.5); Granulocyte Absolute (ANC) 4.24 (1.4-6.9); Granulocytes % 55.4 % (36.0-66.0); Hematocrit 34.8 % (42-50); Hemoglobin 10.3 gm/dl (12.5-18.0); Lymphocyte (Absolute #) 2.28 (1.0-4.6); Lymphocytes % 29.7 % (24.0-44.0); Mean Cell Volume 81.1 fl (78-100); Mean Corpuscular Hgb Concent. 29.6 g/dl (32-36); Mean Platelet Volume 11.9 fl (6-9.5); Monocyte (Absolute #) 0.87 (0.0-1.3); Monocytes % 11.3 % (0.0-12.0); Platelet Count 240 K/mm3 (150-450); Red Blood Count 4.29 M/mm3 (4.1-5.6); Red Cell Distribution Width 19.6 % (11.5-14.0); White Blood Count 7.7 K/mm3 (4.0-10.5)
[2018-09-16] MEDS: NORCO 5/325 MG PO PRN (06:44)
[2018-09-16 07:48] LABS: Slide Review 1 YES
[2018-09-16 08:44] VITALS: BP 124/75; PULSE 67; O2SAT 99
== END 2018-09-16 09:30 | disposition home or self-care (01) ==
LOC: ED 05:56 → MED SURG 07:57
PROVIDERS: ADMIT Family Medicine; ATTEND Family Medicine
DX: D50.0 Iron deficiency anemia secondary to blood loss (chronic) (principal); K64.5 Perianal venous thrombosis; K64.8 Other hemorrhoids; K62.89 Other specified diseases of anus and rectum
CPT/HCPCS: 36000; 36415; 36430; 80048; 80076; 85014; 85018; 85025; 85610; 86850; 86900; 86901; 86922; 96360; 96374; 99285; G0378; P9016; J1170; J2270; J2405; A9270-GY

== ENCOUNTER 2020-01-26 21:30 | Emergency (ER) | payer MEDICAID, OTHER ==
--- NOTE | 2020-01-26 21:33 | ERPHSYRPT ---
- History of Present Illness Time Seen by Provider: 01/26/20 21:33 Source: patient Exam Limitations: no limitations Physician History: This is a 34-year-old white male who was at work when he was exposed to chemicals at work. Drano and liquid fire (sulfuric acid) was placed into a drain to help declog it. The patient was working nearby and was exposed to this at work for approximately 15 minutes. Patient began coughing and complaining of some shortness of breath and chest tightness. Patient arrives to the emergency department with oxygen saturation approximately 95 to 96%. Patient is a smoker of cigarettes. Patient does not have a history of asthma. Timing/Duration: today Severity of Dyspnea-Max: mild Severity of Dyspnea-Current: mild Possible Cause: irritant gases exposure Modifying Factors: Improves With: coughing Associated Symptoms: cough Allergies/Adverse Reactions: No Known Drug Allergies Allergy (Verified 01/26/20 21:37) Hx Tetanus, Diphtheria Vaccination/Date Given: Yes Hx Influenza Vaccination/Date Given: No Hx Pneumococcal Vaccination/Date Given: No Travel Risk - International Travel Have you traveled outside of the country in past 3 weeks: No - Coronavirus Screening Are you exhibiting any of the following symptoms?: No Close contact with a COVID-19 positive Pt in past 14-21 Days: No - Review of Systems Constitutional: No Symptoms Eyes: No Symptoms Ears, Nose, & Throat: No Symptoms Respiratory: Cough, Dyspnea Cardiac: No Symptoms Abdominal/Gastrointestinal: No Symptoms Genitourinary Symptoms: No Symptoms Musculoskeletal: No Symptoms Skin: No Symptoms Neurological: No Symptoms Psychological: No Symptoms Endocrine: No Symptoms Hematologic/Lymphatic: No Symptoms Immunological/Allergic: No Symptoms All Other Systems: Reviewed and Negative - Past Medical History Pertinent Past Medical History: Yes Neurological History: No Pertinent History ENT History: No Pertinent History Cardiac History: No Pertinent History Respiratory History: No Pertinent History Endocrine Medical History: No Pertinent History Musculoskeletal History: No Pertinent History GI Medical History: Hemorrhoids, Hepatitis History: No Pertinent History Psycho-Social History: No Pertinent History Male Reproductive Disorders: No Pertinent History Other Medical History: ANEMIA. - Past Surgical History Past Surgical History: Yes Neuro Surgical History: No Pertinent History Cardiac: No Pertinent History Respiratory: No Pertinent History Gastrointestinal: Cholecystectomy, Hemorrhoidectomy Genitourinary: No Pertinent History Musculoskeletal: No Pertinent History Male Surgical History: No Pertinent History Other Surgical History: COLONOSCOPY-2013 - Social History Smoking Status: Current every day smoker How long have you smoked: 17 years Exposure to second hand smoke: Yes Drug Use: marijuana Patient Lives Alone: No - Nursing Vital Signs Nursing Vital Signs: Initial Vital Signs Temperature 97.8 F 01/26/20 21:30 Pulse Rate 62 01/26/20 21:30 Respiratory Rate 20 01/26/20 21:30 Blood Pressure 114/75 01/26/20 21:30 O2 Sat by Pulse Oximetry 97 01/26/20 21:30 Pain Scale Pain Intensity 1 - Physical Exam General Appearance: mild distress, alert, anxiety Eye Exam: PERRL/EOMI, eyes nml inspection Ears, Nose, Throat Exam: hearing grossly normal, normal ENT inspection, normal pharynx Neck Exam: normal inspection, non-tender, supple, full range of motion Respiratory Exam: normal breath sounds, lungs clear, airway intact, No chest tenderness, No respiratory distress, No accessory muscle use, No rhonchi, No wheezing, No stridor Cardiovascular/Chest Exam: normal heart sounds, regular rate/rhythm, normal peripheral pulses Abdominal/Gastrointestinal Exam: No tenderness Rectal Exam: not done Extremity Exam: non-tender Neurologic Exam: alert, oriented x 3, cooperative, 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 as tested Skin Exam: normal color, warm, dry Lymphatic Exam: adenopathy SpO2 Interpretation: normal O2 Delivery: Room Air - Course Nursing assessment & vital signs reviewed: Yes Ordered Tests: Active Orders 24 hr Category Date Time Status CHEST 1 VIEW (PORTABLE) Stat Exams 01/26/20 21:55 Taken Respiratory Therapy Assessment DAILY RT 01/26/20 22:06 Completed Medication Summary Discontinued Medications Generic Name Dose Route Start Last Admin Trade Name Halima PRN Reason Stop Dose Admin Albuterol Sulfate 2.5 mg 01/26/20 21:55 01/26/20 22:02 Proventil 2.5 Mg/3 Ml Neb IH 01/26/20 21:56 2.5 mg STAT ONE Administration Albuterol Sulfate Confirm 01/26/20 21:59 Proventil 2.5 Mg/3 Ml Neb Administered 01/26/20 22:00 Dose 2.5 mg IH .STK-MED ONE Methylprednisolone Sodium Succinate 125 mg 01/26/20 21:55 Solu-Medrol 125 Mg IM 01/26/20 21:56 STAT ONE - Progress Progress: improved, re-examined Air Movement: good Progress Note: 01/26/20 22:23 Chest x-ray reveals no acute pulmonary process. Blood Culture(s) Obtained: No Antibiotics given: No Counseled pt/family regarding: diagnosis, need for follow-up, rad results - Departure Departure Disposition: Home Clinical Impression: Bronchitis and pneumonitis due to chemical fumes Condition: Stable Critical Care Time: No Referrals: MARTI RAGLAND [Primary Care Provider] - Additional Instructions: Take your medication as prescribed. Follow-up with your primary care physician for persistent symptoms. Return to the emergency department if your symptoms worsen. Exposure to cigarette smoke or other types of smoke. Prescriptions: Albuterol 8 gm Mdi Hfa [Ventolin Hfa MDI] 8 gm IH Q4H #1 [email or web address] Prednisone 10 mg [Deltasone 10 mg] 10 mg PO TID #12 tablet
[2020-01-26] MEDS ORDERED: PROVENTIL 2.5 MG/3 ML NEB IH ONE ×2 (21:55→21:59)
[2020-01-26] MEDS ORDERED: solu-MEDROL 125 MG IM ONE (21:55)
[2020-01-26] MEDS ORDERED: solu-MEDROL 125 MG ONE (22:25)
[2020-01-26 22:47] VITALS: BP 141/97; PULSE 68; O2SAT 97
--- NOTE | 2020-01-27 09:50 | XRAY ---
Exam: AP portable chest film from 01/26/2020. Comparison: Two-view chest from 12/26/2016. Indication: Cough. Findings: The heart size and contour are normal. There is no evidence of mediastinal widening or shift. The trachea is midline. The dominguez and mediastinal structures appear unremarkable. The lungs are adequately inflated. There appear to be a few small granulomatous calcifications. No air space infiltrates, pulmonary vascular congestion, pneumothorax, or pleural effusion is seen. No acute osseous process is seen. There is again slight convexity of the upper thoracic spine toward the right. Impression: 1. No air space infiltrates to suggest focal pneumonia or other acute cardiopulmonary disease is seen. The appearance is similar to the prior chest films of 12/26/2016.
== END 2020-01-26 22:42 | disposition home or self-care (01) ==
LOC: ED 21:30
DX: J68.0 Bronchitis and pneumonitis due to chemicals, gases, fumes and vapors (principal)
CPT/HCPCS: 71045; 94640; 96372; 99284; J2930; J7609; A9270-GY